=== PATIENT | female | born 1990 | race Two or more races ===

== ENCOUNTER 2018-02-05 08:04 | Emergency (ER) | payer SELFPAY ==
[2018-02-05 08:14] VITALS: BP 130/86
--- NOTE | 2018-02-05 09:13 | ER Document Report ---
HPI - HPI Patient complains to provider of: Cough and cold symptoms Onset: Yesterday Onset/Duration: Gradual Pain Level: 2 Context: 27-year-old non-smoker complaining of cough, congestion, myalgias since yesterday. No fever. No chest pain or shortness of breath. Associated Symptoms: None Exacerbated by: Denies Relieved by: Denies Similar symptoms previously: Yes Recently seen / treated by doctor: No - ROS ROS below otherwise negative: Yes Systems Reviewed and Negative: Yes All other systems reviewed and negative Past Medical History - General Information source: Patient - Social History Smoking Status: Never Smoker Frequency of alcohol use: Rare Drug Abuse: None Lives with: Family Family History: Reviewed & Not Pertinent - Medical History Medical History: Negative Surgical Hx: Negative Vertical Provider Document - CONSTITUTIONAL Agree With Documented VS: Yes - INFECTION CONTROL TRAVEL OUTSIDE OF THE [place] IN LAST 30 DAYS: No - HEENT HEENT: Pharyngeal Erythema - Minimal. negative: Conjuctival Injection, Tympanic Membrane Red, Tympanic Membrane Bulging - NECK Neck: Supple. negative: Lymphadenopathy-Left, Lymphadenopathy-Right - RESPIRATORY Respiratory: Breath Sounds Normal, No Respiratory Distress - CARDIOVASCULAR Cardiovascular: Regular Rate, Regular Rhythm - GI/ABDOMEN Gastrointestinal: Abdomen Soft, Abdomen Non-Tender, No Organomegaly - MUSCULOSKELETAL/EXTREMETIES Musculoskeletal/Extremeties: MAEW - NEURO Level of Consciousness: Awake - DERM Integumentary: No Rash Course - Vital Signs Vital signs: Temp Pulse Resp BP Pulse Ox 98.5 F 88 18 130/86 H 97 02/05/18 08:13 02/05/18 08:13 02/05/18 08:13 02/05/18 08:13 02/05/18 08:13 Discharge - Discharge Clinical Impression: Upper respiratory infection Qualifiers: URI type: unspecified viral URI Qualified Code(s): J06.9 - Acute upper respiratory infection, unspecified Condition: Good Disposition: HOME, SELF-CARE Instructions: Acetaminophen, Ibuprofen (General) ([facility]), Upper Respiratory Illness ([facility]) Additional Instructions: Drink plenty of fluids Rest Tylenol Motrin Return to the emergency room for any chest pain or shortness of breath trouble breathing or high fever Forms: Return to Work
== END 2018-02-05 09:34 | disposition home or self-care (01) ==
LOC: ER 08:04
DX: J06.9 Acute upper respiratory infection, unspecified (principal); M79.1 Myalgia
CPT/HCPCS: 99283

== ENCOUNTER 2018-03-08 11:07 | Emergency (ER) | payer SELFPAY ==
--- NOTE | 2018-03-08 11:26 | ER Document Report ---
ED GI/ - General Chief Complaint: Abdominal Pain Stated Complaint: LOW ABDOMINAL PAIN Time Seen by Provider: 03/08/18 11:18 Mode of Arrival: Ambulatory Information source: Patient Notes: Chief complaint: Pelvic cramping History of complain:( obtained from----patient) 27 years old female her last menstrual cycle was February 02, 2018. Tested home test 3 was positive. Developed pelvic pain and cramps therefore concerned and came to the ED. Denies any vaginal discharge or bleeding. Denies any dysuria frequency urgency. Denies any fever chills or other constitutional symptoms. She has 4 pregnancies, one miscarriage, 2 living children. Onset: Gradual Duration: 2 days Severity: Mild Quality: Crampy Context: Exacerbating factor and relieving factors: Noncontributory REVIEW OF SYSTEMS: CONSTITUTIONAL : Denies fever, chills, or sweats. Denies recent illness. EENT: Denies eye, ear, throat, or mouth pain or symptoms. Denies nasal or sinus congestion or discharge. Denies throat, tongue, or mouth swelling or difficulty swallowing. CARDIOVASCULAR: Denies chest pain. Denies palpitations or racing or irregular heart beat. Denies ankle edema. RESPIRATORY: Denies cough, cold, or chest congestion. Denies shortness of breath, difficulty breathing, or wheezing. GASTROINTESTINAL: Denies distention. Denies nausea, vomiting, or diarrhea. Denies blood in vomitus, stools, or per rectum. Denies black, tarry stools. Denies constipation. GENITOURINARY: Denies difficulty urinating, painful urination, burning, frequency, blood in urine, or discharge. FEMALE GENITOURINARY: Denies vaginal bleeding, heavy or abnormal periods, irregular periods. Denies vaginal discharge or odor. MUSCULOSKELETAL: Denies back or neck pain or stiffness. Denies joint pain or swelling. SKIN: Denies rash, lesions or sores. HEMATOLOGIC : Denies easy bruising or bleeding. LYMPHATIC: Denies swollen, enlarged glands. NEUROLOGICAL: Denies confusion or altered mental status. Denies passing out or loss of consciousness. Denies dizziness or lightheadedness. Denies headache. Denies weakness or paralysis or loss of use of either side. Denies problems with gait or speech. Denies sensory loss, numbness, or tingling. Denies seizures. PSYCHIATRIC: Denies anxiety or stress. Denies depression, suicidal ideation, or homicidal ideation. ALL OTHER SYSTEMS REVIEWED AND NEGATIVE. PHYSICAL EXAMINATION: GENERAL: Well-appearing, well-nourished and in no acute distress. HEAD: Atraumatic, normocephalic. EYES: Pupils equal round and reactive to light, extraocular movements intact, conjunctiva are normal. ENT: Nares patent, oropharynx clear without exudates. Moist mucous membranes. NECK: Normal range of motion, supple without lymphadenopathy LUNGS: Breath sounds clear to auscultation bilaterally and equal. No wheezes rales or rhonchi. HEART: Regular rate and rhythm without murmurs ABDOMEN: Soft, nontender, nondistended abdomen. No guarding, no rebound. No masses appreciated. Examination of genitals-deferred Musculoskeletal: Normal range of motion, no pitting or edema. No cyanosis. NEUROLOGICAL: Cranial nerves grossly intact. Normal speech, normal gait. Normal sensory, motor exams PSYCH: Normal mood, normal affect. SKIN: Warm, Dry, normal turgor, no rashes or lesions noted. Dictation was performed using [employer] voice recognition software TRAVEL OUTSIDE OF THE [place] IN LAST 30 DAYS: No - HPI Notes: 03/08/18 11:25 Dictated - Related Data Allergies/Adverse Reactions: No Known Allergies Allergy (Verified 03/08/18 11:08) Past Medical History - Social History Smoking Status: Former Smoker Chew tobacco use (# tins/day): No Frequency of alcohol use: None Drug Abuse: None Family History: Reviewed & Not Pertinent Patient has suicidal ideation: No Patient has homicidal ideation: No Renal/ Medical History: Denies: Hx Peritoneal Dialysis Past Surgical History: Reports: Hx Section - x2 Review of Systems - Review of Systems Notes: Dictated Physical Exam - Vital signs Vitals: Temp Pulse Resp BP Pulse Ox 98.2 F 69 14 125/89 H 98 03/08/18 11:11 03/08/18 11:11 03/08/18 11:11 03/08/18 11:11 03/08/18 11:11 - Notes Notes: Dictated Course - Vital Signs Vital signs: Temp Pulse Resp BP Pulse Ox 98.2 F 69 14 125/89 H 98 03/08/18 11:11 03/08/18 11:11 03/08/18 11:11 03/08/18 11:11 03/08/18 11:11 - Laboratory Laboratory results interpreted by me: 03/08/18 11:27 Serum HCG, Qual POSITIVE H - Diagnostic Test Radiology reviewed: Reports reviewed - Ultrasound reported by radiologist as no intra-or extra uterine Discharge - Discharge Clinical Impression: Spontaneous Condition: Fair Disposition: HOME, SELF-CARE Instructions: Threatened Abortions ( Patients) Additional Instructions: Please follow-up with your driver service technician as soon as possible
--- NOTE | 2018-03-08 13:40 | RADIOLOGY REPORT (SQ) ---
EXAM DESCRIPTION: U/S OB TRANSVAG W/DOPPLER COMPLETED DATE/TIME: 03/08/2018 1:20 pm REASON FOR STUDY: /pelvic pain COMPARISON: None. TECHNIQUE: Transvaginal static and realtime grayscale images acquired of the pelvis. Additional olaf cted spectral and color Doppler images recorded. All images stored on PACs. BHCG: Pending. LIMITATIONS: None. FINDINGS: UTERUS: No visualized intrauterine . RIGHT ADNEXA: Normal ovary with normal vascular flow. No adnexal free fluid. No adnexal masses. LEFT ADNEXA: Ovary not identified. No adnexal free fluid. No adnexal masses. FREE FLUID: None. OTHER: No other significant finding. IMPRESSION: NO VISUALIZED INTRA- OR EXTRAUTERINE . LEFT OVARY NOT VISUALIZED. bHCG LEVEL NOT AVAILABLE FOR CORRELATION WITH US FINDINGS. ECTOPIC CANNOT BE EXCLUDED. FOLLOW-UP ULTRASOUND AND SERIAL BHCG LEVELS STRONGLY RECOMMENDED TO ACCURATELY ASSESS STATU S. TECHNICAL DOCUMENTATION: JOB ID: [id number] [employer]- All Rights Reserved Reading location - IP/workstation name: [facility]
[2018-03-08 14:11] VITALS: BP 127/79
== END 2018-03-08 14:11 | disposition home or self-care (01) ==
LOC: ER 11:07
DX: O03.9 Complete or unspecified spontaneous abortion without complication (principal); R10.2 Pelvic and perineal pain; Z87.891 Personal history of nicotine dependence
CPT/HCPCS: 36415; 76817; 84702; 84703; 93976; 99284

== ENCOUNTER 2018-04-02 13:39 | Emergency (ER) | payer MEDICAID ==
--- NOTE | 2018-04-02 14:17 | ER Document Report ---
ED Neck/Back Problem - General Chief Complaint: Back Pain Stated Complaint: LOWER BACK PAIN Time Seen by Provider: 04/02/18 14:04 Mode of Arrival: Ambulatory Information source: Patient Notes: 27-year-old female presents to ED for complaint of severe lower back pain worse on the right. She is 7 weeks . She states she had a positive ultrasound on Thursday that showed a live fetus intrauterine. 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 TRAVEL OUTSIDE OF THE [place] IN LAST 30 DAYS: No - HPI Patient complains to provider of: Lower back Onset: This afternoon Where: Work Onset: Sudden Timing: Still present Quality of pain: Achy, Sharp Severity: Moderate Pain Level: 4 Context: Lifting Recent injury: Yes Associated symptoms: Radiation to leg, Lower back pain. denies: Constipation, Fever, Incontinence, Motor loss, Numbness/tingling, Radiation to arm, Radiation to chest, Sensory loss, Sweaty, Unable to urinate, Upper back pain Exacerbated by: Movement of trunk Relieved by: Nothing Similar symptoms previously: No Recently seen / treated by doctor: Yes - Related Data Allergies/Adverse Reactions: No Known Allergies Allergy (Verified 03/08/18 11:08) Past Medical History - General Information source: Patient - Social History Smoking Status: Former Smoker Cigarette use (# per day): No Chew tobacco use (# tins/day): No Smoking Education Provided: No Frequency of alcohol use: None Drug Abuse: None 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 Lives with: Family Family History: Reviewed & Not Pertinent Patient has suicidal ideation: No Patient has homicidal ideation: No - Past Medical History Cardiac Medical History: Reports: None Pulmonary Medical History: Reports: None EENT Medical History: Reports: None Neurological Medical History: Reports: None Endocrine Medical History: Reports: None Renal/ Medical History: Reports: None Malignancy Medical History: Reports: None GI Medical History: Reports: None Musculoskeletal Medical History: Reports None Skin Medical History: Reports None Psychiatric Medical History: Reports: None Traumatic Medical History: Reports: None Infectious Medical History: Reports: None Past Surgical History: Reports: Hx Section - x2 - Immunizations Immunizations up to date: Yes Hx Diphtheria, Pertussis, Tetanus Vaccination: Yes Review of Systems - Review of Systems Constitutional: No symptoms reported EENT: No symptoms reported Cardiovascular: No symptoms reported Respiratory: No symptoms reported Gastrointestinal: No symptoms reported Genitourinary: No symptoms reported Female Genitourinary: No symptoms reported Musculoskeletal: No symptoms reported Skin: No symptoms reported Hematologic/Lymphatic: No symptoms reported Neurological/Psychological: No symptoms reported -: Yes All other systems reviewed and negative Physical Exam - Vital signs Vitals: Temp Pulse Resp BP Pulse Ox 98.1 F 87 18 124/77 98 04/02/18 13:47 04/02/18 13:47 04/02/18 13:47 04/02/18 13:47 04/02/18 13:47 Interpretation: Normal - General General appearance: Appears well, Alert - HEENT Head: Normocephalic, Atraumatic Eyes: Normal Pupils: PERRL - Respiratory Respiratory status: No respiratory distress Chest status: Nontender Breath sounds: Normal Chest palpation: Normal - Cardiovascular Rhythm: Regular Heart sounds: Normal auscultation Murmur: No - Abdominal Inspection: Normal Distension: No distension Bowel sounds: Normal Tenderness: Nontender Organomegaly: No organomegaly - Back Back: Normal, Tender - Bilateral low back pain worse on the right. No: Deformity/step-off, CVA tenderness, Vertebra tenderness, Scars, Scoliosis, Wounds - Extremities General upper extremity: Normal inspection, Nontender, Normal color, Normal ROM , Normal temperature General lower extremity: Normal inspection, Nontender, Normal color, Normal ROM , Normal temperature, Normal weight bearing. No: Jose Francisco's sign - Neurological Neuro grossly intact: Yes Cognition: Normal Orientation: AAOx4 Davis Coma Scale Eye Opening: Spontaneous Chris Coma Scale Verbal: Oriented Chris Coma Scale Motor: Obeys Commands Davis Coma Scale Total: 15 Speech: Normal Motor strength normal: LUE, RUE, LLE, RLE Sensory: Normal - Psychological Associated symptoms: Normal affect, Normal mood - Skin Skin Temperature: Warm Skin Moisture: Dry Skin Color: Normal Course - Re-evaluation Re-evalutation: 04/02/18 15:05 Urine results discussed with patient. Written report of the urine results given to patient. Consulted Dr. Mccain [facility] MUSSEL before applying a Lidoderm patch to her back. Patient was also treated with Tylenol. Patient was given instructions on ice warm packs lidocaine and stretching exercises for the low back. Patient to follow-up with [facility]ER MUSSEL. - Vital Signs Vital signs: Temp Pulse Resp BP Pulse Ox 97.6 F 68 16 115/67 100 04/02/18 15:22 04/02/18 15:22 04/02/18 15:22 04/02/18 15:22 04/02/18 15:22 - Laboratory Laboratory results interpreted by me: 04/02/18 14:12 Urine Ascorbic Acid 40 H Discharge - Discharge Clinical Impression: Low back pain Qualifiers: Chronicity: acute Back pain laterality: bilateral Sciatica presence: without sciatica Qualified Code(s): M54.5 - Low back pain Condition: Stable Disposition: HOME, SELF-CARE Additional Instructions: LOW BACK PAIN: Three out of every four people will have an episode of disabling back pain during their lifetime. Most commonly the pain is due to straining of the muscles and ligaments in the low back. Usual treatment includes: (1) Rest on a firm surface. Avoid lying on your stomach. (2) Ice pack the painful area. After a few days, gentle heat may be used intermittently to relax the area, or ice packs can be continued. (3) Medication may be needed -- muscle relaxers and antiinflammatory medicines are commonly used. (4) As the back improves, exercises are prescribed to strengthen the back and abdominal muscles. Your doctor will advise you on the proper care for your back at each stage in your recovery. You may be better in a few days -- or healing may take several weeks. If new symptoms of a "herniated disc" (radiation of pain, numbness, or tingling down the back of the leg or weakness in the leg) occur, you should be re-examined. Further testing may be necessary. ICE PACKS: Apply ice packs frequently against the painful area. Many different schedules are recommended, such as "20 minutes on, 20 minutes off" or "one hour ice, two hours rest." If you need to work, you may need to go longer between ice treatments. You should plan to have the area ice packed AT LEAST one fourth of the time. The ice should be applied over the wrap, tape, or splint, or over a layer of cloth -- not directly against the skin. Some ice bags have a built-in cloth and can be put directly on the skin. WARM PACKS: After approximately two days, apply gentle heat (such as a heating pad or hot water bottle) for about 20 to 30 minutes about every two hours -- at least four times daily. Warmth and elevation will help you make a more rapid recovery , and will ease the pain considerably. Do not use HOT heat, and never apply heat for longer than 30 minutes. The continuous heat can invisibly damage skin and muscles -- even when no burn is seen on the surface. Damaged muscles can make you MORE sore. Stretching Exercises for the Back The physician has recommended that you begin stretching exercises for your back. These are often used even while the back is painful. However, you should notify the physician if the activities seem to increase your pain. PELVIC TILT: Lie flat on your back with knees bent. Tighten your stomach and buttock muscles so it flattens your lower back against the floor. Hold 10 seconds. Repeat 10 times, twice daily. KNEE RAISE: Lying on the back with knees bent, raise one knee to your chest, then the other. Hold both knees against the chest 10 seconds, then lower one knee at a time. Repeat 10 times, twice daily. PARTIAL TRUNK RAISE: Lie face down, arms at your sides. Keeping your waist on the floor, use your arms raise your chest up. Support yourself on your elbows for 30 seconds. Repeat twice daily, increasing the time to two minutes as you recover. Remove the lidocaine patch and 12 hours. Since she states she do not have insurance that will pay for Lidoderm patches you can use [id number] Aspercreme for the lidocaine. Do not put warm packs on top of the Aspercreme but you can put cold packs. Use warm packs as long as you are not using the Aspercreme or Lidoderm patch. Follow-up with your primary doctor. FOLLOW-UP CARE: If you have been referred to a physician for follow-up care, call the physician s office for an appointment as you were instructed or within the next two days. If you experience worsening or a significant change in your symptoms, notify the physician immediately or return to the Emergency Department at any time for re-evaluation. Forms: Return to Work Referrals: [facility] [Provider Group] - Follow up as needed
[2018-04-02] MEDS ORDERED: ACETAMINOPHEN 325 MG TABLET PO ONE (14:18)
[2018-04-02] MEDS ORDERED: LIDOCAINE 5% (700 MG) TRANSDERMAL ADH..PATCH TP ONE (14:22)
[2018-04-02 14:59] LABS: APPEARANCE,URINE CLEAR; BILIRUBIN,URINE NEGATIVE (NEGATIVE); COLOR,URINE YELLOW; GLUCOSE, URINE NEGATIVE (NEGATIVE); KETONES,URINE NEGATIVE (NEGATIVE); LEUKOCYTE ESTERASE,URINE NEGATIVE (NEGATIVE); NITRITE,URINE NEGATIVE (NEGATIVE); PROTEIN,URINE NEGATIVE (NEGATIVE); URINE SPECIFIC GRAVITY 1.023; UROBILINOGEN,URINE NEGATIVE mg/dL (<2.0)
[2018-04-02 15:23] VITALS: BP 115/67
== END 2018-04-02 15:24 | disposition home or self-care (01) ==
LOC: ER 13:39
DX: O99.89 Other specified diseases and conditions complicating pregnancy, childbirth and the puerperium (principal); M54.5 Low back pain; Z3A.01 Less than 8 weeks gestation of pregnancy; Z87.891 Personal history of nicotine dependence
CPT/HCPCS: 99283; 81001; J3490 ×2

== ENCOUNTER 2018-07-19 14:25 | Outpatient (CLI) | payer MEDICAID ==
[2018-07-19 15:11] LABS: APPEARANCE,URINE CLEAR; BILIRUBIN,URINE NEGATIVE (NEGATIVE); COLOR,URINE YELLOW; GLUCOSE, URINE NEGATIVE (NEGATIVE); KETONES,URINE NEGATIVE (NEGATIVE); LEUKOCYTE ESTERASE,URINE NEGATIVE (NEGATIVE); NITRITE,URINE NEGATIVE (NEGATIVE); PROTEIN,URINE NEGATIVE (NEGATIVE); URINE SPECIFIC GRAVITY 1.015; UROBILINOGEN,URINE NEGATIVE mg/dL (<2.0)
[2018-07-19 15:44] LABS: URINE AMPHETAMINES SCREEN NEGATIVE; URINE BARBITURATES SCREEN NEGATIVE; URINE BENZODIAZEPINES SCREEN NEGATIVE; URINE METHADONE SCREEN NEGATIVE; URINE PHENCYCLIDINE SCREEN NEGATIVE
[2018-07-19 15:51] LABS: URINE COCAINE SCREEN NEGATIVE; URINE MARIJUANA (THC) SCREEN NEGATIVE
== END 2018-07-19 15:40 | disposition home or self-care (01) ==
LOC: LC 14:25
PROVIDERS: ATTEND Obstetrics & Gynecology Gynecology
DX: O26.892 Other specified pregnancy related conditions, second trimester (principal); Z3A.22 22 weeks gestation of pregnancy
CPT/HCPCS: 81001; 80307; Q0114

== ENCOUNTER 2018-09-07 18:12 | Outpatient (CLI) | payer MEDICAID ==
[2018-09-07 19:21] LABS: APPEARANCE,URINE SLIGHTLY-CLOUDY; BILIRUBIN,URINE NEGATIVE (NEGATIVE); COLOR,URINE YELLOW; GLUCOSE, URINE NEGATIVE (NEGATIVE); KETONES,URINE 20 mg/dL (NEGATIVE); LEUKOCYTE ESTERASE,URINE NEGATIVE (NEGATIVE); NITRITE,URINE NEGATIVE (NEGATIVE); PROTEIN,URINE NEGATIVE (NEGATIVE); UROBILINOGEN,URINE NEGATIVE mg/dL (<2.0)
[2018-09-07 19:34] LABS: URINE AMPHETAMINES SCREEN NEGATIVE; URINE BARBITURATES SCREEN NEGATIVE; URINE BENZODIAZEPINES SCREEN NEGATIVE; URINE COCAINE SCREEN NEGATIVE; URINE MARIJUANA (THC) SCREEN NEGATIVE; URINE METHADONE SCREEN NEGATIVE; URINE PHENCYCLIDINE SCREEN NEGATIVE
--- NOTE | 2018-09-07 21:30 | RADIOLOGY REPORT (SQ) ---
US PELVIS HISTORY: Evaluate cervical length. COMPARISON: 04/16/2018 TECHNIQUE: Grayscale, color Doppler, and spectral Doppler ultrasound images of the pelvis were obtained. FINDINGS: There is an intrauterine gestation in vertex presentation. The heart rate is 145 bpm. The placenta is anterior. The cervix measures 4 cm in length and is closed. The BISHOP measures 15.6 cm. IMPRESSION: Cervical length measures 4 cm.
== END 2018-09-07 21:06 | disposition home or self-care (01) ==
LOC: LC 18:12
PROVIDERS: ATTEND Obstetrics & Gynecology
PROC: 4A1HXCZ Monitoring of Products of Conception, Cardiac Rate, External Approach (ICD-10-PCS; principal; 2018-09-07)
DX: O99.283 Endocrine, nutritional and metabolic diseases complicating pregnancy, third trimester (principal); E86.0 Dehydration; M54.9 Dorsalgia, unspecified; Z3A.29 29 weeks gestation of pregnancy
CPT/HCPCS: 76815; 80307; 81001

== ENCOUNTER 2018-10-21 09:27 | Outpatient (CLI) | payer MEDICAID ==
[2018-10-21 10:18] LABS: APPEARANCE,URINE CLEAR; BILIRUBIN,URINE NEGATIVE (NEGATIVE); COLOR,URINE YELLOW; GLUCOSE, URINE 50 mg/dL (NEGATIVE); KETONES,URINE TRACE mg/dL (NEGATIVE); LEUKOCYTE ESTERASE,URINE NEGATIVE (NEGATIVE); NITRITE,URINE NEGATIVE (NEGATIVE); PROTEIN,URINE NEGATIVE (NEGATIVE); URINE SPECIFIC GRAVITY 1.016
--- NOTE | 2018-10-21 10:46 | Non Stress Test Report ---
Non Stress Test Datetime Report Generated by CPN: 10/21/2018 10:46 DEMOGRAPHIC EGA NST: 36.1 INDICATION Indication for Study: Ordered by Provider Indication for Study (NST) Other: labor check VITAL SIGNS Temperature - NST: 98.3 RESP - NST: 18 NBPSYS NST: 125 NBPDIA NST: 67 MONITORING Monitor Explained: Monitor Explained; Test Explained; Patient Verbalized Understanding Time on Monitor: 10/21/2018 09:56 Time off Monitor: 10/21/2018 10:25 NST Duration: 29 NST INTERVENTIONS NST Interventions: None; Oxytocin Challenge Test Physician Notified NST: Dr Younger BABY A: [id number] BABY A Movement : Present Contraction Frequency : none FHR Baseline : 135 Accelerations : 15X15 Decelerations : None Variability : Moderate 6-25bpm NST Review: Meets Criteria for Reactive NST NST Review and Verified By : Susana Kuo RNC NST Results: Reactive NST REPORT Report Trigger: Send Report
[2018-10-21 10:59] LABS: URINE AMPHETAMINES SCREEN NEGATIVE; URINE BARBITURATES SCREEN NEGATIVE; URINE BENZODIAZEPINES SCREEN NEGATIVE; URINE COCAINE SCREEN NEGATIVE; URINE MARIJUANA (THC) SCREEN NEGATIVE; URINE METHADONE SCREEN NEGATIVE; URINE PHENCYCLIDINE SCREEN NEGATIVE
== END 2018-10-21 10:41 | disposition home or self-care (01) ==
LOC: LC 09:27
PROVIDERS: ATTEND Obstetrics & Gynecology
PROC: 4A1HXCZ Monitoring of Products of Conception, Cardiac Rate, External Approach (ICD-10-PCS; principal; 2018-10-21)
DX: Z34.93 Encounter for supervision of normal pregnancy, unspecified, third trimester (principal)
CPT/HCPCS: 59025; 80307; 81001

== ENCOUNTER 2018-11-10 04:31 | Inpatient (IN) | payer MEDICAID ==
[2018-11-09 10:59] LABS: ABSOLUTE LYMPHOCYTES (AUTO) 1.7 10^3/uL (0.5-4.7); ABSOLUTE MONOCYTES (AUTO) 0.5 10^3/uL (0.1-1.4); BASOPHILS % (AUTO) 0.2 % (0-2); EOSINOPHILS % (AUTO) 0.4 % (0-6); HEMATOCRIT 32.2 % (36.0-47.0); HEMOGLOBIN 11.1 g/dL (12.0-15.5); LYMPHOCYTES % (AUTO) 23.6 % (13-45); MEAN CORPUSCULAR HEMOGLOBIN 27.9 pg (27.0-33.4); MEAN CORPUSCULAR HGB CONC 34.5 g/dL (32.0-36.0); MEAN CORPUSCULAR VOLUME 81 fl (80-97); MONOCYTES % (AUTO) 6.7 % (3-13); PLATELET COUNT 100 10^3/uL (150-450); RED BLOOD COUNT 3.98 10^6/uL (3.72-5.28); RED CELL DISTRIBUTION WIDTH 14.2 % (11.5-14.0); SEGMENTED NEUTROPHILS % (AUTO) 69.1 % (42-78); TOTAL CELLS COUNTED % (AUTO) 100 %; WHITE BLOOD COUNT 7.2 10^3/uL (4.0-10.5)
[2018-11-09 11:01] LABS: APPEARANCE,URINE CLEAR; BILIRUBIN,URINE NEGATIVE (NEGATIVE); COLOR,URINE YELLOW; GLUCOSE, URINE NEGATIVE (NEGATIVE); KETONES,URINE NEGATIVE (NEGATIVE); LEUKOCYTE ESTERASE,URINE TRACE (NEGATIVE); NITRITE,URINE NEGATIVE (NEGATIVE); PROTEIN,URINE NEGATIVE (NEGATIVE); URINE SPECIFIC GRAVITY 1.012
[2018-11-09 11:31] LABS: URINE AMPHETAMINES SCREEN NEGATIVE; URINE BARBITURATES SCREEN NEGATIVE; URINE BENZODIAZEPINES SCREEN NEGATIVE; URINE COCAINE SCREEN NEGATIVE; URINE MARIJUANA (THC) SCREEN NEGATIVE; URINE METHADONE SCREEN NEGATIVE; URINE PHENCYCLIDINE SCREEN NEGATIVE
[2018-11-10] MEDS ORDERED: RINGERS SOLUTION,LACTATED 1,000 ML IV PRN ×2 (04:53→10:31)
[2018-11-10] MEDS ORDERED: CEFAZOLIN 2 GM/D5W RTU 2 GM/50 ML RTUPB IV PRN (04:58)
[2018-11-10] MEDS ORDERED: RINGERS SOLUTION,LACTATED 2,000 ML IV ONE (05:00)
[2018-11-10] MEDS ORDERED: FENTANYL CITRATE INJ/PF 100 MCG/2 ML AMPUL ONE (07:43)
[2018-11-10] MEDS ORDERED: EPHEDRINE SULFATE INJ 50 MG/1 ML AMPULE ONE (07:43)
[2018-11-10] MEDS ORDERED: BUPIVACAINE HCL/DEX-WATER/PF 15 MG/2 ML AMPULE ONE (07:43)
[2018-11-10] MEDS ORDERED: MIDAZOLAM 2 MG/2 ML INJ ONE (07:43)
[2018-11-10] MEDS ORDERED: OXYTOCIN/NORMAL SALINE 20 UNIT/1,000 ML RTUINJ ONE (07:44)
[2018-11-10 09:04] LABS: HEMATOCRIT 31.4 % (36.0-47.0); HEMOGLOBIN 10.6 g/dL (12.0-15.5); MEAN CORPUSCULAR HEMOGLOBIN 27.4 pg (27.0-33.4); MEAN CORPUSCULAR HGB CONC 33.9 g/dL (32.0-36.0); MEAN CORPUSCULAR VOLUME 81 fl (80-97); PLATELET COUNT 104 10^3/uL (150-450); RED BLOOD COUNT 3.88 10^6/uL (3.72-5.28); RED CELL DISTRIBUTION WIDTH 14.1 % (11.5-14.0); WHITE BLOOD COUNT 7.9 10^3/uL (4.0-10.5)
[2018-11-10] MEDS ORDERED: MEPERIDINE HCL/PF INJ 25 MG/1 ML DISP.SYRIN IV PRN (09:45)
[2018-11-10] MEDS ORDERED: PROMETHAZINE HCL INJ 25 MG/1 ML VIAL IV PRN ×3 (09:45→10:31)
[2018-11-10] MEDS ORDERED: FENTANYL CITRATE INJ/PF 100 MCG/2 ML AMPUL IV PRN ×3 (09:45)
[2018-11-10] MEDS ORDERED: OXYCODONE-ACETAMINOPHEN 5-325 MG TABLET PO PRN ×3 (09:45→10:31)
[2018-11-10] MEDS ORDERED: DIPHENHYDRAMINE HCL 50 MG/ML VIAL IV PRN (09:45)
[2018-11-10] MEDS ORDERED: HYDROMORPHONE HCL INJ/PF 2 MG/ML AMPULE IV PRN (10:31)
[2018-11-10] MEDS ORDERED: ACETAMINOPHEN 325 MG TABLET PO PRN (10:31)
[2018-11-10] MEDS ORDERED: ACETAMINOPHEN 1,000 MG/100 ML RTUPB IV PRN (10:31)
[2018-11-10] MEDS ORDERED: SIMETHICONE 80 MG TAB.CHEW PO PRN (10:31)
[2018-11-10] MEDS ORDERED: OXYTOCIN/NORMAL SALINE 20 UNIT/1,000 ML RTUINJ IV PRN (10:31)
[2018-11-10] MEDS ORDERED: DIPH/PERTUSS(ACELL)/TETANUS VAC/PF 0.5 ML SYR (>=10YO) IM PRN (10:31)
[2018-11-10] MEDS ORDERED: MEASLES,MUMPS&RUBELLA VACC/PF 0.5 ML VIAL SUBCUT PRN (10:31)
--- NOTE | 2018-11-10 10:33 | PDOC DELIVERY SUMMARY ---
Delivery Summary - Maternal Hx : IV Hx # Term Pregnancies: 1 Hx # Pregnancies: 1 Hx Total # of Abortions (Sponateous & Elective): 1 PRASAD: 11/17/18 Gestational Age: 39 Ruptured Membranes: AROM Time of Rupture: 09:47 Fluids: Clear - Delivery Presentation: Vertex Heart Rate Monitoring: Done Pre-Operatively Support Person Present: No Location: LD : Scheduled Placenta: Within Normal Limits Delivery of Placenta Date: 11/10/18 Delivery of Placenta Time: 09:51 - Medications Type of Anesthesia:: Spinal - Assess and Care Baby 1 Male Delivery of Infant Date: 11/10/18 Delivery of Infant Time: 09:49 at 1 minute: 9 at 5 minutes: 9 Preprinted Number On Band: [id number] Infant Skin to Skin: No To Nursery At: 09:58 Mode of Transport: Bassinet Delivery Weight: 3,995 Infant Delivery Length: 21 in - Delivery Personnel Rubbish Collection Supervisor: LIDIA YOUNG RN: LETICIA MIXON RN: JUWAN UNDERWOOD MD: OLGA VELA
--- NOTE | 2018-11-10 10:35 | Operative Report ---
Operative Report DATE OF SURGERY: 11/10/18 PREOPERATIVE DIAGNOSIS: The patient desires a repeat and a tubal liga tion with Filshie clips POSTOPERATIVE DIAGNOSIS: Same OPERATION: Repeat via low transverse uterine incision and bilateral tubal ligation with Filshie clip SURGEON: OLGA VELA ANESTHESIA: Spinal TISSUE REMOVED OR ALTERED: Placenta COMPLICATIONS: None ESTIMATED BLOOD LOSS: 250 cc INTRAOPERATIVE FINDINGS: Viable normal uterus tubes and ovaries PROCEDURE: Patient was taken to the OR and placed in supine position after her spinal anesthesia. She is prepared and draped in sterile fashion. Meza was placed for drainage of the bladder. Low transverse incision was made and carried down the level of the fascia. The fascial incision was made with knife and extended bilaterally with curved Berg scissors. The fascia was off the rectus muscles using sharp and blunt dissection. The rectus muscles are in the midline. The peritoneum was entered without incident. Bladder blade was placed in uterine segment was identified. A low transverse incision was made creating a bladder flap. Bladder blade was placed low transverse uterine incision was made with the knife and extended with fingertips. The baby was delivered with some fundal pressure and the assistance of a Kiwi vacuum with one pull with the pressure in the green range. There was 1 pop off. After the pop off the baby was then delivered with just some fundal pressure. Mouth and nose were suctioned free. The cord is doubly clamped and cut. Baby is passed off to the salesperson children's shoes in attendance. The placenta was manually extracted with trailing membranes. The uterus was externalized wrapped in a moist lap sponge. Uterine contents wiped free. Uterus was closed with a running locking layer of 0 chromic suture using the second layer to imbricate the first completing a double layer closure of the uterus. The serosa was closed with a running 2-0 chromic stitch. The pelvis was irrigated and suctioned free of fluid the uterus was replaced in the abdomen. The abdominal wall peritoneum was closed with running 2-0 chromic stitch. Fascia was closed with a running 0 Vicryl in 2 segments. Yamilka's layer was brought together with 0 plain gut stitch and the skin was closed with running subcuticular 4-0 undyed Vicryl stitch. The wound was dressed mother and baby did well.
[2018-11-10] MEDS ORDERED: ACETAMINOPHEN 1,000 MG/100 ML RTUPB IV ONE (11:26)
[2018-11-10] MEDS ORDERED: OXYCODONE-ACETAMINOPHEN 5-325 MG TABLET ONE (12:12)
[2018-11-10] MEDS: IBUPROFEN 800 MG TABLET PO SCH ×3 (13:38→23:29)
[2018-11-10] MEDS ORDERED: ONDANSETRON HCL INJ/PF 4 MG/2 ML SDV ONE (15:12)
[2018-11-10] MEDS: OXYCODONE-ACETAMINOPHEN 5-325 MG TABLET PO PRN (17:45)
[2018-11-10] MEDS: DOCUSATE SODIUM 100 MG CAPSULE PO SCH (17:46)
[2018-11-11] MEDS: OXYCODONE-ACETAMINOPHEN 5-325 MG TABLET PO PRN ×2 (01:18→12:44)
[2018-11-11] MEDS: IBUPROFEN 800 MG TABLET PO SCH ×4 (06:01→23:56)
[2018-11-11 06:14] LABS: HEMATOCRIT 29.4 % (36.0-47.0); MEAN CORPUSCULAR HEMOGLOBIN 27.7 pg (27.0-33.4); MEAN CORPUSCULAR VOLUME 82 fl (80-97); RED BLOOD COUNT 3.61 10^6/uL (3.72-5.28); RED CELL DISTRIBUTION WIDTH 14.5 % (11.5-14.0); WHITE BLOOD COUNT 9.1 10^3/uL (4.0-10.5)
[2018-11-11 06:37] LABS: PLATELET COUNT 99 10^3/uL (150-450)
--- NOTE | 2018-11-11 09:47 | PDOC PROGRESS REPORT ---
Subjective-OB Progress Note for:: 11/11/18 Subjective: pt states she feels fine eating well and passing gas Physical Exam (OB) Vital Signs: Temp Pulse Resp BP Pulse Ox 97.9 F 78 15 109/68 97 11/11/18 08:00 11/11/18 08:00 11/11/18 08:00 11/11/18 08:00 11/11/18 08:00 Intake & Output 11/10/18 11/11/18 11/12/18 06:59 06:59 06:59 Intake Total 1180 Output Total 2550 Balance -1370 Weight 230 kg 104.7 kg - General General Appearance: Appears well, Alert - PIH/Pre-Eclampsia Clonus: Negative Headache: Absent Epigastric Pain: No Visual Changes: No - Dressing Removed: No Incision: Well Approximated Closure Type: Sutures - Lochia Lochia Amount: Small 10-25 ml Lochia Color: Rubra/Red - Abdomen Description: Soft Bowel Sounds: Normoactive Flatus Presence: Present Stool: No Fundal Description: Firm, Midline Fundal Height: u/u - u/2 - Extremities Calf: Nontender Objective-Diagnostic Laboratory: 11/11/18 05:52 11/11/18 05:52 WBC 9.1 RBC 3.61 L Hgb 10.0 L Hct 29.4 L MCV 82 MCH 27.7 MCHC 34.0 RDW 14.5 H Plt Count 99 L Assessment and Plan(PN) - Assessment and Plan (1) Qualifiers: Weeks of gestation: 39 weeks Qualified Code(s): Z3A.39 - 39 weeks gestation of Is this a current diagnosis for this admission?: Yes - Time Spent with Patient Time with patient: Less than 15 minutes - Disposition Anticipated Discharge: Home Within: within 24 hours - routine post /post op care
[2018-11-11] MEDS: PRENATAL VITAMIN W DHA CAPSULE PO SCH (10:08)
[2018-11-11] MEDS: DOCUSATE SODIUM 100 MG CAPSULE PO SCH ×2 (10:09→18:54)
[2018-11-12] MEDS: IBUPROFEN 800 MG TABLET PO SCH ×2 (05:46→11:08)
[2018-11-12] MEDS: OXYCODONE-ACETAMINOPHEN 5-325 MG TABLET PO PRN ×2 (07:40→12:24)
[2018-11-12] MEDS: DOCUSATE SODIUM 100 MG CAPSULE PO SCH (09:06)
[2018-11-12] MEDS: PRENATAL VITAMIN W DHA CAPSULE PO SCH (09:06)
--- NOTE | 2018-11-12 09:38 | PDOC PROGRESS REPORT ---
Subjective-OB Progress Note for:: 11/12/18 Subjective: Doing well, ready to go home, breast and bottle feeding Physical Exam (OB) Vital Signs: Temp Pulse Resp BP Pulse Ox 98.1 F 80 16 133/62 H 95 11/12/18 07:54 11/12/18 07:54 11/12/18 07:54 11/12/18 07:54 11/12/18 07:54 Intake & Output 11/11/18 11/12/18 11/13/18 06:59 06:59 06:59 Intake Total 1180 500 Output Total 2550 Balance -1370 500 Weight 104.7 kg 104.7 kg - PIH/Pre-Eclampsia DTR's: 1 + Clonus: Negative Headache: Absent Epigastric Pain: No Visual Changes: No - Dressing Removed: No Incision: Dressing Closure Type: opsite - Lochia Lochia Amount: Scant < 10 ml Lochia Color: Rubra/Red - Abdomen Description: Soft, Round Hernia Present: No Fundal Description: Firm, Midline Fundal Height: u/u - u/2 Objective-Diagnostic Laboratory: 11/11/18 05:52 Assessment and Plan(PN) - Assessment and Plan (1) History of bilateral tubal ligation Is this a current diagnosis for this admission?: Yes (2) Status post repeat low transverse section Is this a current diagnosis for this admission?: Yes - Time Spent with Patient Time with patient: Less than 15 minutes Medications reviewed and adjusted accordingly: Yes - Disposition Anticipated Discharge: Home Within: within 24 hours
--- NOTE | 2018-11-12 09:44 | PDOC DISCHARGE SUMMARY ---
Final Diagnosis Discharge Date: 11/12/18 - Final Diagnosis (1) History of bilateral tubal ligation Is this a current diagnosis for this admission?: Yes (2) Status post repeat low transverse section Is this a current diagnosis for this admission?: Yes Discharge Data - Discharge Medication Prescriptions: Oxycodone HCl/Acetaminophen [Percocet 5-325 mg Tablet] 1 tab PO Q4HP PRN #30 tablet PRN Reason: Ibuprofen [Motrin 800 mg Tablet] 800 mg PO Q6 #30 tablet Home Medications: Vits96/Iron Fum/Folic [ Tablet] 1 each PO DAILY 07/19/18 Ibuprofen [Motrin 800 mg Tablet] 800 mg PO Q6 #30 tablet 11/12/18 Oxycodone HCl/Acetaminophen [Percocet 5-325 mg Tablet] 1 tab PO Q4HP PRN #30 tablet 11/12/18 Gestational Age: 38 Reason(s) for Admission: Ceasarean Section-Repeat, Tubal Ligation Procedures: NST, Ultrasound Intrapartum Procedure(s): : Low Cervical, Transverse - Diagnosis Test Laboratory: Temp Pulse Resp BP Pulse Ox 98.1 F 80 16 133/62 H 95 11/12/18 07:54 11/12/18 07:54 11/12/18 07:54 11/12/18 07:54 11/12/18 07:54 11/09/18 11/09/18 11/10/18 10:10 10:21 08:00 RBC 3.98 Cancelled Hgb 11.1 L Cancelled Hct 32.2 L Cancelled Urine Opiates Screen NEGATIVE 11/10/18 11/11/18 08:58 05:52 RBC 3.88 3.61 L Hgb 10.6 L 10.0 L Hct 31.4 L 29.4 L Urine Opiates Screen - Discharge information/Instructions Discharge Activity: Activity As Tolerated, No Lifting Over 10 Pounds, No Lifting/Push/Pulling, Pelvic Rest Discharge Diet: As Tolerated, Regular Disposition: HOME, SELF-CARE Follow up with: [facility] in: 1, Weeks
[2018-11-12 10:56] VITALS: BP 119/74
== END 2018-11-12 12:45 | disposition home or self-care (01) | DRG 785 ==
LOC: 2S 04:31
PROVIDERS: ADMIT Obstetrics & Gynecology; ATTEND Obstetrics & Gynecology
PROC: 0UL70CZ Occlusion of Bilateral Fallopian Tubes with Extraluminal Device, Open Approach (ICD-10-PCS; 2018-11-10)
PROC: 4A1HX4Z Monitoring of Products of Conception, Cardiac Electrical Activity, External Approach (ICD-10-PCS; 2018-11-10)
PROC: 10D00Z1 Extraction of Products of Conception, Low, Open Approach (ICD-10-PCS; principal; 2018-11-10 07:45)
DX: O34.211 Maternal care for low transverse scar from previous cesarean delivery (principal); O24.425 Gestational diabetes mellitus in childbirth, controlled by oral hypoglycemic drugs; O99.213 Obesity complicating pregnancy, third trimester; N85.8 Other specified noninflammatory disorders of uterus; Z37.0 Single live birth; Z87.891 Personal history of nicotine dependence; Z3A.39 39 weeks gestation of pregnancy; Z30.2 Encounter for sterilization
CPT/HCPCS: 1961; 36415; 59025; 80307; 81001; 82962; 85025; 85027; 86850; 86900; 86901; 90715; 94799; J0131; J2250; J2405; J2590; J3010; J3490; J7120

== ENCOUNTER 2018-11-25 10:25 | Emergency (ER) | payer MEDICAID ==
[2018-11-25 10:50] VITALS: BP 132/90
[2018-11-25] MEDS ORDERED: LIDOCAINE 2% VISCOUS SOLN 20 ML UDCUP PO ONE (11:33)
[2018-11-25] MEDS ORDERED: PENICILLIN V POTASSIUM 500 MG TABLET PO ONE (11:33)
[2018-11-25] MEDS ORDERED: ACETAMINOPHEN 325 MG TABLET PO ONE (11:33)
--- NOTE | 2018-11-25 11:39 | ER Document Report ---
ED Oral Problem - General Chief Complaint: Toothache Stated Complaint: TOOTH PAIN Time Seen by Provider: 11/25/18 11:33 Primary Care Provider: [facility] [Provider Group] - Follow up as needed JUAN NUR DO [ACTIVE STAFF] - Follow up as needed Mode of Arrival: Ambulatory Information source: Patient Notes: 28-year-old female presented to ED for multiple dental caries and dental pain throughout her whole mouth. She has multiple cavities to the left upper jaw that are causing discomfort. She states she has been told that she needs to have most of her teeth taken out due to gum disease. She states she does need something for the discomfort and infection at this time and that she is getting his insurance to be able to go to a dentist. Is alert oriented respirations regular and unlabored speaking in full sentences walks with a even steady gait. She does not have any signs or symptoms of Abhishek's angina. He will be treated with Tylenol viscous lidocaine and penicillin and discharged home with a prescription for penicillin. TRAVEL OUTSIDE OF THE [place] IN LAST 30 DAYS: No - HPI Patient complains to provider of: Toothache Onset: Other Onset: Gradual - Chronic worse Quality of pain: Sharp Severity: Moderate Pain Level: 4 Associated symptoms: Toothache Worsened by: Nothing Relieved by: Nothing Similar symptoms previously: Yes Recently seen / treated by doctor/dentist: No - Related Data Allergies/Adverse Reactions: No Known Allergies Allergy (Verified 11/25/18 10:28) Past Medical History - General Information source: Patient - Social History Smoking Status: Never Smoker Frequency of alcohol use: None Drug Abuse: None Lives with: Family Family History: Reviewed & Not Pertinent Patient has suicidal ideation: No Patient has homicidal ideation: No - Past Medical History Cardiac Medical History: Reports: Hx Hypertension - GHTN Pulmonary Medical History: Reports: None EENT Medical History: Reports: None Neurological Medical History: Reports: None Endocrine Medical History: Reports: None Renal/ Medical History: Reports: None Malignancy Medical History: Reports: None GI Medical History: Reports: Hx Gastroesophageal Reflux Disease - WITH Musculoskeletal Medical History: Reports None Skin Medical History: Reports None Psychiatric Medical History: Reports: None Traumatic Medical History: Reports: None Infectious Medical History: Reports: None Past Surgical History: Reports: Hx Section - x3 - Immunizations Immunizations up to date: Yes Hx Diphtheria, Pertussis, Tetanus Vaccination: Yes Review of Systems - Review of Systems Constitutional: No symptoms reported EENT: Mouth pain, Dental problem Cardiovascular: No symptoms reported Respiratory: No symptoms reported Gastrointestinal: No symptoms reported Genitourinary: No symptoms reported Female Genitourinary: No symptoms reported Musculoskeletal: No symptoms reported Skin: No symptoms reported Hematologic/Lymphatic: No symptoms reported Neurological/Psychological: No symptoms reported Physical Exam - Vital signs Vitals: Temp Pulse Resp BP Pulse Ox 98.8 F 79 16 132/90 H 98 11/25/18 10:48 11/25/18 10:48 11/25/18 10:48 11/25/18 10:48 11/25/18 10:48 Interpretation: Normal - General General appearance: Appears well, Alert - HEENT Head: Normocephalic, Atraumatic Eyes: Normal Pupils: PERRL Ears: Normal External canal: Normal Tympanic membrane: Normal Sinus: Normal Nasal: Normal Mucous membranes: Other Teeth diagram: 1 - 2 large cavities in this area but she has multiple cavities throughout her mouth did need to be treated. - Respiratory Respiratory status: No respiratory distress Chest status: Nontender Breath sounds: Normal Chest palpation: Normal - Cardiovascular Rhythm: Regular Heart sounds: Normal auscultation Murmur: No - Abdominal Inspection: Normal Distension: No distension Bowel sounds: Normal Tenderness: Nontender Organomegaly: No organomegaly - Back Back: Normal, Nontender - Extremities General upper extremity: Normal inspection, Nontender, Normal color, Normal ROM, Normal temperature General lower extremity: Normal inspection, Nontender, Normal color, Normal ROM, Normal temperature, Normal weight bearing. No: Jose Francisco's sign - Neurological Neuro grossly intact: Yes Cognition: Normal Orientation: AAOx4 [place] Coma Scale Eye Opening: Spontaneous Chris Coma Scale Verbal: Oriented Chris Coma Scale Motor: Obeys Commands [place] Coma Scale Total: 15 Speech: Normal Motor strength normal: LUE, RUE, LLE, RLE Sensory: Normal - Psychological Associated symptoms: Normal affect, Normal mood - Skin Skin Temperature: Warm Skin Moisture: Dry Skin Color: Normal Course - Re-evaluation Re-evalutation: 11/25/18 11:42 Presentation is most consistent with likely an infected tooth. Airway is patent. Vitals within normal limits. Patient is able swallow without any difficulty. There is no significant facial swelling. No evidence of Abhishek angina, apical abscess, or airway obstruction. Patient will be started on antibiotics. I've instructed to follow-up with dentistry as earliest ability for definitive management. At this time will discharge with return precautions and follow-up recommendations. Verbal discharge instructions given a the bedside and opportunity for questions given. Medication warnings reviewed. Patient is in agreement with this plan and has verbalized understanding of return precautions and the need for primary care follow-up in the next 24-72 hours. - Vital Signs Vital signs: Temp Pulse Resp BP Pulse Ox 98.8 F 79 16 132/90 H 98 11/25/18 10:48 11/25/18 10:48 11/25/18 10:48 11/25/18 10:48 11/25/18 10:48 Discharge - Discharge Clinical Impression: Pain due to dental caries Condition: Stable Disposition: HOME, SELF-CARE Additional Instructions: TOOTHACHE: Your pain is due to dental decay. The tooth must be repaired in order for you to feel better. You will, therefore, be referred to a dentist. We do not have dentists on the staff at [facility]. Severe swelling or drainage around a tooth usually means a dental abscess. This also requires evaluation and treatment by the dentist, but antibiotics may be prescribed while awaiting dental treatment. You should be rechecked immediately if you develop major swelling of the face, increasing pain, a lump in the jaw or gums, headache, difficulty swallowing, or fever. PENICILLIN V K: You have been given a prescription for Penicillin VK. Your physician has determined that this is the best antibiotic for your condition. Pen VK can be taken with meals, however more of the antibiotic gets into the bloodstream if it's taken on an empty stomach. Penicillin usually has no side effects. However, allergy to penicillins is common. If you have had an allergic reaction to any drug of the penicillin family, you should never take any other penicillin. Notify your doctor at once if you develop hives, itching, swelling, faintness, or shortness of breath. Acetaminophen Acetaminophen may be taken for pain relief or fever control. It's much safer than aspirin, offering a wider range of "safe" dosages. It is safe during . Some brand names are Tylenol, Panadol, Datril, Anacin 3, Tempra, and Liquiprin. Acetaminophen can be repeated every four hours. The following are maximum recommended dosages: WEIGHT Dose Drops Elixir Chewable(80mg) (LBS.) drprs=droppers tsp=teaspoon 6 40 mg .4 ml (1/2) 6-11 80 mg .8 ml (full) 1/2 tsp 1 tab 12-16 120 mg 1 1/2 drprs 3/4 tsp 1 1/2 tabs 17-23 160 mg 2 drprs 1 tsp 2 tabs 24-30 240 mg 3 drprs 1 1/2 tsp 3 tabs 30-35 320 mg 2 tsp 4 tabs 36-41 360 mg 2 1/4 tsp 4 1/2 tabs 42-47 400 mg 2 1/2 tsp 5 tabs 48-53 480 mg 3 tsp 6 tabs 54-59 520 mg 3 1/4 tsp 6 1/2 tabs 60-64 560 mg 3 1/2 tsp 7 tabs 65-70 600 mg 3 3/4 tsp 7 1/2 tabs 71-76 640 mg 4 tsp 8 tabs 77-82 720 mg 4 1/2 tsp 9 tabs 83-88 800 mg 5 tsp 10 tabs >89 pounds or adults 650 mg to 900 mg Acetaminophen can be repeated every four hours. Maximum daily dose not to exceed 4000 mg. These maximum recommended dosages are slightly higher than the dosages written on the product container, but these dosages are very safe and well below the toxic dosage for acetaminophen. Ibuprofen Ibuprofen is an excellent, safe drug for pain control. In addition, it has potent antiinflammatory effects which are beneficial, especially in the treatment of injuries, arthritis, or tendonitis. It's best to take ibuprofen with food. Persons with ulcer disease or allergy to aspirin should notify their physician of this before taking ibuprofen. Take the medication exactly as prescribed. Don't take additional doses unless instructed to do so by your doctor. If you develop wheezing, shortness of breath, hives, faintness, stomach pain, vomiting, or dark black stools, return for re-evaluation at once. I have given you a syringe of viscous lidocaine. Up to apply a small amount to your finger and rub it on the gums that are hurting. You can do this every 3-4 hours. Do not do it more often and that or it will make your gums hurt more and become raw. FOLLOW-UP CARE: You have been referred for follow-up care to the dentists listed below. Call the dentists office for an appointment as you were instructed or within the next two days. If you experience worsening or a significant change in your symptoms, notify the physician immediately or return to the Emergency Department at any time for re-evaluation. [facility] [address] [place] [address] [facility] [place] [address] [facility] [address] [facility] ([facility]) [facility] [address] [email or web address] [address] [place] [address] Thursday- 8:00am to 5:00 pm Will see patients from other [facility]. Charges based on income and family size and accepts Medicare, Medicaid, and Insurances Will pull molars [facility] [address] Hours of Operation 8:00 am - 4:30 pm weekdays The following dental offices accept Medicaid: [facility] [address] [place] Dr. Eller [address]. [place] Srikanth Rouse Lutsavage, and Mauricio oral surgery Dr. Barajas ([place]) Dr. Hale ([place]) [facility] Drs. Hutchison and Parker ([place]) Dr. Samuel ([place]) [facility] Dr. Harris ([place]) Drs. Louis and ([place]) Medicaid Care Line Prescriptions: Penicillin V Potassium [Penicillin Vk 500 mg Tablet] 500 mg PO BID #20 tablet Forms: Elevated Blood Pressure Referrals: JUAN NUR DO [ACTIVE STAFF] - Follow up as needed [facility] [Provider Group] - Follow up as needed
== END 2018-11-25 11:55 | disposition home or self-care (01) ==
LOC: ER 10:25
DX: K08.89 Other specified disorders of teeth and supporting structures (principal); K02.9 Dental caries, unspecified
CPT/HCPCS: 99282; J3490 ×3

== ENCOUNTER 2018-12-30 07:42 | Emergency (ER) | payer MEDICAID ==
[2018-12-30 07:45] VITALS: BP 121/87
--- NOTE | 2018-12-30 08:19 | ER Document Report ---
HPI - HPI Patient complains to provider of: dental pain Time Seen by Provider: 12/30/18 07:55 Onset: Yesterday Onset/Duration: Persistent Severity: Severe Pain Level: 5 Context: Patient presents emergency department with complaints of right lower dental pain that started yesterday. She reports she had a pus pocket and it popped. She denies other symptoms such as fever vomiting diarrhea. Reports history of dental cavities has not been able to follow-up with a dentist yet. Took ibuprofen and it seemed to help the symptoms. Associated Symptoms: None Exacerbated by: Denies Relieved by: Denies Similar symptoms previously: Yes Recently seen / treated by doctor: Yes - CONSTITUTIONAL Constitutional: DENIES: Fever, Chills - EENT EENT: DENIES: Sore Throat, Ear Pain, Eye problems - NEURO Neurology: REPORTS: Headache - r/t tooth pain. DENIES: Weakness, Vision blurred, Dizzinesss / Vertigo - CARDIOVASCULAR Cardiovascular: DENIES: Chest pain - RESPIRATORY Respiratory: DENIES: Trouble Breathing, Coughing - GASTROINTESTINAL Gastrointestinal: DENIES: Abdominal Pain, Black / Bloody Stools - URINARY Urinary: DENIES: Dysuria, Urgency, Frequency - REPRODUCTIVE Reproductive: DENIES: :, Abnormal bleeding / discharge - MUSCULOSKELETAL Musculoskeletal: DENIES: Extremity pain Past Medical History - General Information source: Patient Last Menstrual Period: Current - Social History Smoking Status: Current Every Day Smoker Chew tobacco use (# tins/day): No Frequency of alcohol use: Occasional Drug Abuse: None Occupation: Construction Lives with: Family Family History: Reviewed & Not Pertinent Patient has suicidal ideation: No Patient has homicidal ideation: No - Past Medical History Cardiac Medical History: Reports: Hx Hypertension - GHTN Endocrine Medical History: Reports: Other - Gestational diabetes Renal/ Medical History: Denies: Hx Peritoneal Dialysis GI Medical History: Reports: Hx Gastroesophageal Reflux Disease - WITH Past Surgical History: Reports: Hx Section - x3, Hx Tubal Ligation - Immunizations Immunizations up to date: Yes Hx Diphtheria, Pertussis, Tetanus Vaccination: Yes Vertical Provider Document - CONSTITUTIONAL Agree With Documented VS: Yes Exam Limitations: No Limitations - INFECTION CONTROL TRAVEL OUTSIDE OF THE [place] IN LAST 30 DAYS: No - HEENT HEENT: Atraumatic, Normocephalic Mouth Diagram: 1 - Patient reports pain. No erythema no swelling no pustule of his mouth wide good clear voice no Ludwigs - NECK Neck: Normal Inspection, Supple - RESPIRATORY Respiratory: Breath Sounds Normal, No Respiratory Distress - CARDIOVASCULAR Cardiovascular: Regular Rate - MUSCULOSKELETAL/EXTREMETIES Musculoskeletal/Extremeties: MAWILMA, FROM - NEURO Level of Consciousness: Awake, Alert, Appropriate Motor/Sensory: No Motor Deficit - DERM Integumentary: Warm, Dry Course - Re-evaluation Re-evalutation: 12/30/18 08:27 Patient reports that she has all the dental resources that we gave her in November. She reports she is trying to call the dentist today to set up an appointment. She was instructed on medication. She was instructed that she really needs to follow-up with a dentist to take care of her issues she verbalized understanding to all instructions Dictation of this chart was performed using voice recognition software; therefore, there may be some unintended grammatical errors. - Vital Signs Vital signs: Temp Pulse Resp BP Pulse Ox 98.0 F 88 16 121/87 H 98 12/30/18 07:45 12/30/18 07:45 12/30/18 07:45 12/30/18 07:45 12/30/18 07:45 Discharge - Discharge Clinical Impression: Pain, dental Condition: Stable Disposition: HOME, SELF-CARE Instructions: Penicillin V K ([facility]), Toothache ([facility]) Additional Instructions: *You have been evaluated for dental pain *Take medications as prescribed tylenol or motrin as indicated for pain *Follow up with dentist within one week *Return to ED for worsening condition, changes, needs Prescriptions: Penicillin V Potassium [Penicillin Vk 500 mg Tablet] 500 mg PO BID #20 tablet Forms: Return to Work Referrals: RICHARD DAVID MD [Primary Care Provider] - Follow up in 1 week
== END 2018-12-30 08:28 | disposition home or self-care (01) ==
LOC: ER 07:42
DX: K08.89 Other specified disorders of teeth and supporting structures (principal); R51 Headache; F17.200 Nicotine dependence, unspecified, uncomplicated; I10 Essential (primary) hypertension
CPT/HCPCS: 99282

== ENCOUNTER 2019-01-18 12:40 | Emergency (ER) | payer MEDICAID ==
--- NOTE | 2019-01-18 13:04 | ER Document Report ---
ED Medical Screen (RME) - General Chief Complaint: Abdominal Pain Stated Complaint: FLANK PAIN Time Seen by Provider: 01/18/19 12:59 Primary Care Provider: RICHARD DAVID MD [Primary Care Provider] - Follow up as needed TRAVEL OUTSIDE OF THE [place] IN LAST 30 DAYS: No - HPI Notes: 01/18/19 13:03 Patient is a 28-year-old female no significant past medical history who presents complaining of pain near her surgical scar from that initially occurred 2 weeks ago when she was reaching in front of her and felt a tearing sensation near her inside of the incision. Patient states that she has not noticed any opening or bleeding to the skin. Patient states that she did take couple days of work thereafter and has continued to feel soreness in that area. Patient states that it reoccurred today and that is what prompted her to come for evaluation. She has not noticed any bulging or redness. She is eating and drinking without difficulty. She is urinating normally and having normal bowel movements. No vaginal discharge, odor, or bleeding. Denies drug allergies. Denies PARRISH, fever, neck pain, URI, CP, SOB, dysuria, back pain, or rash. I have treated and performed a rapid initial assessment of this patient. A comprehensive ED assessment and evaluation of the patient, analysis of test results and completion of medical decision making process will be conducted by additional ED providers. PHYSICAL EXAMINATION: GENERAL: Well-appearing, well-nourished and in no acute distress. A&Ox4. Answers questions appropriately. LUNGS: Breath sounds clear to auscultation bilaterally and equal. No wheezes rales or rhonchi. HEART: Regular rate and rhythm without murmurs, rubs, gallops. ABDOMEN: Soft, nondistended abdomen. No guarding, no rebound. Normal bowel sounds present. No CVA tenderness bilaterally. + mild tenderness to surgical scar area w/o obvious hernia or erythema noted (cannot elicit thorough abd exam w/o bed, however). Extremities: No cyanosis, clubbing, or edema b/l. NEUROLOGICAL: Normal speech, normal gait. PSYCH: Normal mood, normal affect. - Related Data Allergies/Adverse Reactions: No Known Allergies Allergy (Verified 12/30/18 07:47) Past Medical History - Social History Frequency of alcohol use: None Drug Abuse: None - Past Medical History Cardiac Medical History: Reports: Hx Hypertension - GHTN Renal/ Medical History: Denies: Hx Peritoneal Dialysis GI Medical History: Reports: Hx Gastroesophageal Reflux Disease - WITH Past Surgical History: Reports: Hx Section - x3, Hx Tubal Ligation - Immunizations Immunizations up to date: Yes Hx Diphtheria, Pertussis, Tetanus Vaccination: Yes Physical Exam - Vital signs Vitals: Temp Pulse Resp BP Pulse Ox 98 F 66 18 141/93 H 99 01/18/19 12:51 01/18/19 12:51 01/18/19 12:51 01/18/19 12:51 01/18/19 12:51 Course - Vital Signs Vital signs: Temp Pulse Resp BP Pulse Ox 98 F 66 18 141/93 H 99 01/18/19 12:51 01/18/19 12:51 01/18/19 12:51 01/18/19 12:51 01/18/19 12:51 Doctor's Discharge - Discharge Referrals: RICHARD DAVID MD [Primary Care Provider] - Follow up as needed
[2019-01-18 13:36] LABS: APPEARANCE,URINE SLIGHTLY-CLOUDY; BILIRUBIN,URINE NEGATIVE (NEGATIVE); COLOR,URINE YELLOW; GLUCOSE, URINE NEGATIVE (NEGATIVE); KETONES,URINE TRACE mg/dL (NEGATIVE); LEUKOCYTE ESTERASE,URINE NEGATIVE (NEGATIVE); NITRITE,URINE NEGATIVE (NEGATIVE); PROTEIN,URINE NEGATIVE (NEGATIVE); URINE SPECIFIC GRAVITY 1.023; UROBILINOGEN,URINE NEGATIVE mg/dL (<2.0)
[2019-01-18 13:51] LABS: ALANINE AMINOTRANSFERASE 24 U/L (9-52); ALBUMIN 4.4 g/dL (3.5-5.0); ALKALINE PHOSPHATASE 78 U/L (38-126); ANION GAP 11 (5-19); ASPARTATE AMINO TRANSFERASE 22 U/L (14-36); BILIRUBIN,DIRECT 0.2 mg/dL (0.0-0.4); BILIRUBIN,TOTAL 0.7 mg/dL (0.2-1.3); BLOOD UREA NITROGEN 10 mg/dL (7-20); CALCIUM 9.8 mg/dL (8.4-10.2); CARBON DIOXIDE 26 mmol/L (22-30); CHLORIDE 106 mmol/L (98-107); GLUCOSE 87 mg/dL (75-110); POTASSIUM 3.7 mmol/L (3.6-5.0); SODIUM 142.7 mmol/L (137-145); TOTAL PROTEIN 7.6 g/dL (6.3-8.2)
[2019-01-18 13:52] LABS: ABSOLUTE EOSINOPHILS # (AUTO) 0.2 10^3/uL (0.0-0.6); ABSOLUTE LYMPHOCYTES (AUTO) 2.2 10^3/uL (0.5-4.7); ABSOLUTE MONOCYTES (AUTO) 0.5 10^3/uL (0.1-1.4); ABSOLUTE NEUT (AUTO) 3.9 10^3/uL (1.7-8.2); BASOPHILS % (AUTO) 0.6 % (0-2); EOSINOPHILS % (AUTO) 2.8 % (0-6); HEMATOCRIT 35.3 % (36.0-47.0); HEMOGLOBIN 11.8 g/dL (12.0-15.5); LYMPHOCYTES % (AUTO) 32.2 % (13-45); MEAN CORPUSCULAR HEMOGLOBIN 27.4 pg (27.0-33.4); MEAN CORPUSCULAR HGB CONC 33.3 g/dL (32.0-36.0); MEAN CORPUSCULAR VOLUME 82 fl (80-97); MONOCYTES % (AUTO) 6.9 % (3-13); PLATELET COUNT 233 10^3/uL (150-450); RED CELL DISTRIBUTION WIDTH 16.5 % (11.5-14.0); SEGMENTED NEUTROPHILS % (AUTO) 57.5 % (42-78); TOTAL CELLS COUNTED % (AUTO) 100 %; WHITE BLOOD COUNT 6.8 10^3/uL (4.0-10.5)
[2019-01-18] MEDS ORDERED: DICYCLOMINE HCL INJ 20 MG/2 ML AMPULE IM ONE (15:30)
--- NOTE | 2019-01-18 16:51 | RADIOLOGY REPORT (SQ) ---
EXAM DESCRIPTION: U/S ABDOMEN LTD W/DOPPLER COMPLETED DATE/TIME: 01/18/2019 4:30 pm REASON FOR STUDY: low abdominal pain COMPARISON: None. TECHNIQUE: Dynamic and static grayscale images acquired of the localized site of clinical concern an d recorded on PACS. Additional selected color Doppler and spectral images recorded. SITE OF CONCERN: section scar in the lower abdomen. LIMITATIONS: None. FINDINGS: There is a small irregular fluid collection on the right side of the scar, measuring appro ximately 4 mm. Minimal internal echoes. No unusual vascularity on Doppler imaging. IMPRESSION: SMALL 4 MM FLUID COLLECTION ON THE RIGHT SIDE OF THE SURGICAL SCAR. THIS MAY REPRESENT A MINIMAL RESIDUAL SEROMA. NO SIGNIFICANT INTERNAL DEBRIS AND ABSCESS IS PROBABLY UNLIKELY ALTHOUGH NOT ENTIRELY EXCLUDED. TECHNICAL DOCUMENTATION: JOB ID: [id number] [employer] All Rights Reserved Reading location - IP/workstation name: [email or web address]
--- NOTE | 2019-01-18 17:43 | ER Document Report ---
ED General - General Chief Complaint: Abdominal Pain Stated Complaint: FLANK PAIN Time Seen by Provider: 01/18/19 12:59 Primary Care Provider: RICHARD DAVID MD [Primary Care Provider] - Follow up as needed TRAVEL OUTSIDE OF THE [place] IN LAST 30 DAYS: No - HPI Notes: Patient is a 28-year-old female presents emergency department for evaluation of abdominal pain. She had a in November. It was scheduled, her second. She states over the last month she had an aching pain over her car, it is worsened recently. It seems to be worsened with stretching. She denies any fevers or chills. No nausea or vomiting. No vaginal discharge or bleeding. She is moving her bowels normally, passing gas without difficulty. Pain is sharp and stabbing - Related Data Allergies/Adverse Reactions: No Known Allergies Allergy (Verified 12/30/18 07:47) Past Medical History - General Information source: Patient - Social History Smoking Status: Current Every Day Smoker Frequency of alcohol use: None Drug Abuse: None Family History: Reviewed & Not Pertinent Patient has suicidal ideation: No Patient has homicidal ideation: No - Past Medical History Cardiac Medical History: Reports: Hx Hypertension - GHTN Renal/ Medical History: Denies: Hx Peritoneal Dialysis GI Medical History: Reports: Hx Gastroesophageal Reflux Disease - WITH Past Surgical History: Reports: Hx Section - x3, Hx Tubal Ligation - Immunizations Immunizations up to date: Yes Hx Diphtheria, Pertussis, Tetanus Vaccination: Yes Review of Systems - Review of Systems Constitutional: No symptoms reported EENT: No symptoms reported Cardiovascular: No symptoms reported Respiratory: No symptoms reported Gastrointestinal: See HPI Genitourinary: No symptoms reported Female Genitourinary: No symptoms reported Musculoskeletal: No symptoms reported Skin: See HPI Neurological/Psychological: No symptoms reported Physical Exam - Vital signs Vitals: Temp Pulse Resp BP Pulse Ox 98 F 66 18 141/93 H 99 01/18/19 12:51 01/18/19 12:51 01/18/19 12:51 01/18/19 12:51 01/18/19 12:51 - Notes Notes: Vital signs reviewed, please refer to chart. Head is normocephalic, atraumatic. Pupils equal round, reactive to light. Neck is supple without meningismus. Heart is regular rate and rhythm. Lungs are clear to auscultation bilaterally. Abdomen is soft, minimal tenderness over the scar itself. The scar is in the low Pfannenstiel position. I do not appreciate any fluctuance or induration in this area.. Extremities without cyanosis, clubbing. Posterior calves are nontender. Peripheral pulses are equal. Skin is warm and dry. Patient is awake, alert, neurological exam is nonfocal. Course - Re-evaluation Re-evalutation: 01/18/19 17:41 Patient presents emergency department for evaluation of pain over her scar. Her pain is primarily located on the left. Her laboratory investigations were entirely unremarkable. She has no leukocytosis. Ultrasound was performed, and a fluid collection was noted on the right side of the scar. Given the lack of pain in that area, recent surgery, and her lack of any generalized symptoms, I believe it to be a likely seroma. She is to follow-up with her primary care physician, take anti-inflammatories as needed for pain, return to the ED with worsening or new concerning symptoms of any sort. - Vital Signs Vital signs: Temp Pulse Resp BP Pulse Ox 98 F 66 18 141/93 H 99 01/18/19 12:51 01/18/19 12:51 01/18/19 12:51 01/18/19 12:51 01/18/19 12:51 - Laboratory Result Diagrams: 01/18/19 13:10 01/18/19 13:10 Laboratory results interpreted by me: 01/18/19 01/18/19 13:10 13:10 Hgb 11.8 L Hct 35.3 L RDW 16.5 H Urine Ketones TRACE H - Diagnostic Test Radiology reviewed: Reports reviewed Radiology results interpreted by me: 01/18/19 17:42 Abdomen Ultrasound 01/18/19 15:32 IMPRESSION: SMALL 4 MM FLUID COLLECTION ON THE RIGHT SIDE OF THE SURGICAL SCAR. THIS MAY REPRESENT A MINIMAL RESIDUAL SEROMA. NO SIGNIFICANT INTERNAL DEBRIS AND ABSCESS IS PROBABLY UNLIKELY ALTHOUGH NOT ENTIRELY EXCLUDED. Discharge - Discharge Clinical Impression: Scar pain, Seroma after procedure Condition: Stable Disposition: HOME, SELF-CARE Additional Instructions: There was a small fluid collection noted on the right side of your scar, this is likely just a normal product of healing. Ibuprofen as needed for pain. Follow- up with your doctor in 1 to 2 weeks. Return to the emergency department with worsening or new concerning symptoms of any sort. Referrals: RICHARD DAVID MD [Primary Care Provider] - Follow up as needed
[2019-01-18 18:31] VITALS: BP 139/94
== END 2019-01-18 18:31 | disposition home or self-care (01) ==
LOC: ER 12:40
DX: O90.2 Hematoma of obstetric wound (principal); R10.9 Unspecified abdominal pain; F17.200 Nicotine dependence, unspecified, uncomplicated
CPT/HCPCS: 36415; 76705; 80053; 81001; 81025; 85025; 93976; 99284

== ENCOUNTER 2019-01-23 20:12 | Emergency (ER) | payer MEDICAID ==
[2019-01-23] MEDS ORDERED: ONDANSETRON 4 MG TAB.RAPDIS PO ONE (20:34)
--- NOTE | 2019-01-23 20:36 | ER Document Report ---
ED Medical Screen (RME) - General Chief Complaint: Nausea/Vomiting/Diarrhea Stated Complaint: VOMITING Time Seen by Provider: 01/23/19 20:32 Primary Care Provider: RICHARD DAVID MD [Primary Care Provider] - Follow up as needed Mode of Arrival: Ambulatory Information source: Patient Notes: Patient presents to the emergency department with complaints of nausea vomiting diarrhea all day long. Reports she ate some sushi last night and has been sick since. She reports she has had vomiting and diarrhea at least 30 times today. Reports other family members are not ill but they did not eat the sushi. She reports she attempted to eat some dinner and it came right back up. Denies past medical history. Complains of left upper quad abdominal pain and is tender to palpate. Denies fever. I have greeted and performed a rapid initial assessment of this patient. A comprehensive ED assessment and evaluation of the patient, analysis of test results and completion of the medical decision making process will be conducted by additional ED providers. Again TRAVEL OUTSIDE OF THE [place] IN LAST 30 DAYS: No - Related Data Allergies/Adverse Reactions: No Known Allergies Allergy (Verified 01/23/19 20:14) Past Medical History - Social History Chew tobacco use (# tins/day): No Frequency of alcohol use: Rare Drug Abuse: None - Past Medical History Cardiac Medical History: Reports: Hx Hypertension - GHTN Renal/ Medical History: Denies: Hx Peritoneal Dialysis GI Medical History: Reports: Hx Gastroesophageal Reflux Disease - WITH Past Surgical History: Reports: Hx Section - x3, Hx Tubal Ligation - Immunizations Immunizations up to date: Yes Hx Diphtheria, Pertussis, Tetanus Vaccination: Yes Physical Exam - Vital signs Vitals: Temp Pulse Resp BP Pulse Ox 98.2 F 79 20 127/88 H 98 01/23/19 20:22 01/23/19 20:22 01/23/19 20:22 01/23/19 20:22 01/23/19 20:22 Course - Vital Signs Vital signs: Temp Pulse Resp BP Pulse Ox 98.2 F 79 20 127/88 H 98 01/23/19 20:22 01/23/19 20:22 01/23/19 20:22 01/23/19 20:22 01/23/19 20:22 Doctor's Discharge - Discharge Referrals: RICHARD DAVID MD [Primary Care Provider] - Follow up as needed
[2019-01-23 20:58] LABS: HEMATOCRIT 38.6 % (36.0-47.0); HEMOGLOBIN 12.8 g/dL (12.0-15.5); MEAN CORPUSCULAR HEMOGLOBIN 27.3 pg (27.0-33.4); MEAN CORPUSCULAR VOLUME 83 fl (80-97); PLATELET COUNT 215 10^3/uL (150-450); RED BLOOD COUNT 4.68 10^6/uL (3.72-5.28); RED CELL DISTRIBUTION WIDTH 16.1 % (11.5-14.0); WHITE BLOOD COUNT 10.9 10^3/uL (4.0-10.5)
[2019-01-23 21:11] LABS: ABSOLUTE LYMPHOCYTES# (MANUAL) 0.3 10^3/uL (0.5-4.7); ABSOLUTE MONOCYTES # (MANUAL) 0.2 10^3/uL (0.1-1.4); BAND NEUTROPHILS % (MANUAL) 1 % (3-5); BASOPHILS % (MANUAL) 0 % (0-2); EOSINOPHILS % (MANUAL) 0 % (0-6); LYMPHOCYTES % (MANUAL) 3 % (13-45); MONOCYTES % (MANUAL) 2 % (3-13); SEGMENTED NEUTROPHILS % (MAN) 94 % (42-78); TOTAL CELLS COUNTED 100
[2019-01-23 21:12] LABS: ANISOCYTOSIS 1+; APPEARANCE,URINE CLEAR; BILIRUBIN,URINE NEGATIVE (NEGATIVE); COLOR,URINE YELLOW; GLUCOSE, URINE NEGATIVE (NEGATIVE); KETONES,URINE NEGATIVE (NEGATIVE); LEUKOCYTE ESTERASE,URINE NEGATIVE (NEGATIVE); NITRITE,URINE NEGATIVE (NEGATIVE); PLATELET COMMENT ADEQUATE; PROTEIN,URINE NEGATIVE (NEGATIVE); URINE SPECIFIC GRAVITY 1.019; UROBILINOGEN,URINE NEGATIVE mg/dL (<2.0)
[2019-01-23 21:13] LABS: HYPOCHROMASIA SLIGHT
[2019-01-23 21:19] LABS: ALANINE AMINOTRANSFERASE 22 U/L (9-52); ALBUMIN 4.2 g/dL (3.5-5.0); ALKALINE PHOSPHATASE 72 U/L (38-126); ANION GAP 9 (5-19); ASPARTATE AMINO TRANSFERASE 24 U/L (14-36); BILIRUBIN,DIRECT 0.3 mg/dL (0.0-0.4); BLOOD UREA NITROGEN 8 mg/dL (7-20); CALCIUM 9.7 mg/dL (8.4-10.2); CARBON DIOXIDE 24 mmol/L (22-30); CHLORIDE 108 mmol/L (98-107); GLUCOSE 113 mg/dL (75-110); SODIUM 141.4 mmol/L (137-145); TOTAL PROTEIN 7.3 g/dL (6.3-8.2)
[2019-01-23] MEDS ORDERED: NORMAL SALINE 1000 ML 1,000 ML IV ONE (22:24)
--- NOTE | 2019-01-23 23:30 | ER Document Report ---
ED General - General Chief Complaint: Nausea/Vomiting/Diarrhea Stated Complaint: VOMITING Time Seen by Provider: 01/23/19 20:32 Primary Care Provider: RICHARD DAVID MD [Primary Care Provider] - Follow up as needed Mode of Arrival: Ambulatory Notes: Patient is a pleasant 28-year-old female presents with complaint of diarrhea and vomiting. No fevers. She denies any abdominal pain other than some chronic pain she has had over her incision site which she says has been there since her surgery. 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 Surgery was back in September. No blood in her stool. She says that she did see a small shaggy of blood in her emesis once. Otherwise emesis has been more like stomach acid. Symptoms started this morning. She said before going to bed last night she did eat sushi. She thinks this could be contributing to her vomiting and diarrhea. She has no other complaints at this time. TRAVEL OUTSIDE OF THE [place] IN LAST 30 DAYS: No - Related Data Allergies/Adverse Reactions: No Known Allergies Allergy (Verified 01/23/19 20:14) Past Medical History - General Information source: Patient - Social History Smoking Status: Current Every Day Smoker Chew tobacco use (# tins/day): No Frequency of alcohol use: Rare Drug Abuse: None Family History: Reviewed & Not Pertinent Patient has suicidal ideation: No Patient has homicidal ideation: No - Past Medical History Cardiac Medical History: Reports: Hx Hypertension - GHTN Renal/ Medical History: Denies: Hx Peritoneal Dialysis GI Medical History: Reports: Hx Gastroesophageal Reflux Disease - WITH Past Surgical History: Reports: Hx Section - x3, Hx Tubal Ligation - Immunizations Immunizations up to date: Yes Hx Diphtheria, Pertussis, Tetanus Vaccination: Yes Review of Systems - Review of Systems Notes: My Normal Review Basic REVIEW OF SYSTEMS: CONSTITUTIONAL : Denies fever, chills, or sweats. Denies recent illness. EENT: Denies eye, ear, throat, or mouth pain or symptoms. Denies nasal or s inus congestion. CARDIOVASCULAR: Denies chest pain. RESPIRATORY: Denies cough, cold, or chest congestion. Denies shortness of breath, difficulty breathing, or wheezing. GASTROINTESTINAL: Pain along the incision site from previous . Vomiting and diarrhea GENITOURINARY: Denies difficulty urinating, painful urination, burning, frequency, or blood in urine. FEMALE GENITOURINARY: Denies vaginal bleeding, abnormal or irregular periods. MUSCULOSKELETAL: Denies neck or back pain or joint pain or swelling. SKIN: Denies rash or skin lesions. NEUROLOGICAL: Denies altered mental status or loss of consciousness. Denies headache. Denies weakness or paralysis or loss of use of either side. Denies problems with gait or speech. Denies sensory or motor loss. ALL OTHER SYSTEMS REVIEWED AND NEGATIVE. Physical Exam - Vital signs Vitals: Temp Pulse Resp BP Pulse Ox 98.2 F 79 20 127/88 H 98 01/23/19 20:22 01/23/19 20:22 01/23/19 20:22 01/23/19 20:22 01/23/19 20:22 - Notes Notes: General Appearance: Well nourished, alert, cooperative, no acute distress, no obvious discomfort. Well-appearing. Vitals: reviewed, See vital signs table. Head: no swelling or tenderness to the head Eyes: PERRL, EOMI, Conjuctiva clear Mouth: No decreasd moisture Throat: No tonsillar inflammation, No airway obstruction, No lymphadenopathy Neck: Supple, no neck tenderness, No thyromegaly Lungs: No wheezing, No rales, No rhonci, No accessory muscle use, good air exc hange bilaterally. Heart: Normal rate, Regular rythm, No murmur, no rub Abdomen: Normal BS, soft, No rigidity, No abdominal tenderness the patient except for mild tenderness around incision site. Incision is intact and there is no spreading redness or swelling., No guarding, no rebound, no abdominal masses, no organomegaly Extremities: strength 5/5 in all extremities, good pulses in all extremities, no swelling or tenderness in the extremities, no edema. Skin: warm, dry, appropriate color, no rash Neuro: speech clear, oriented x 3, normal affect, responds appropriately to questions. Course - Re-evaluation Re-evalutation: 01/24/19 00:15 Patient is continued to do well with the Zofran. She said no further nausea or vomiting. She looks well. She did receive some IV fluids. Laboratory evaluation is unremarkable. I suspect she may have some food poisoning from sushi she ate. She is not septic or toxic appearing. At this time we will continue to control her nausea with Zofran and anticipate that her diarrhea should hopefully start to improve over the next 1 to 2 days. I informed her that to have a low threshold to return to ER if she has fevers, recurrent vomiting, worsening diarrhea, spreading abdominal pain, any blood in her stool, or if she has diarrhea after 5 days. Patient agrees with plan will be disc harged home. Dictation of this chart was performed using voice recognition software; therefore, there may be some unintended grammatical errors. - Vital Signs Vital signs: Temp Pulse Resp BP Pulse Ox 98.2 F 79 20 127/88 H 98 01/23/19 20:22 01/23/19 20:22 01/23/19 20:22 01/23/19 20:22 01/23/19 20:22 - Laboratory Result Diagrams: 01/23/19 20:45 01/23/19 20:45 Laboratory results interpreted by me: 01/23/19 01/23/19 20:45 20:45 WBC 10.9 H RDW 16.1 H Seg Neuts % (Manual) 94 H Band Neutrophils % 1 L Lymphocytes % (Manual) 3 L Monocytes % (Manual) 2 L Abs Neuts (Manual) 10.4 H Abs Lymphs (Manual) 0.3 L Chloride 108 H Glucose 113 H Discharge - Discharge Clinical Impression: Vomiting and diarrhea Condition: Good Disposition: HOME, SELF-CARE Additional Instructions: Treatment for your vomiting and diarrhea at this time are to control your nausea and vomiting. We have given you a medication called Zofran that will help with this. I anticipate that your diarrhea should improve over the next 1 to 2 days. If you continue to have diarrhea after 5 days than you should return to the ER for reevaluation. Also please return to ER immediately if you have fevers, s preading abdominal pain, bloody stools, intractable vomiting, or if you feel that you are worsening in any way. Please eat a bland diet over the next several days. Prescriptions: Ondansetron [Zofran Odt 4 mg Tablet] 1 tab PO Q4H PRN #15 tab.rapdis PRN Reason: For Nausea/Vomiting Forms: Return to Work Referrals: RICHARD DAVID MD [Primary Care Provider] - Follow up in 3-5 days
[2019-01-24] MEDS ORDERED: ONDANSETRON ODT 4 MG TAB (6 TAB/ER DISP) PO PRN (00:16)
[2019-01-24 00:40] VITALS: BP 133/86
== END 2019-01-24 00:42 | disposition home or self-care (01) ==
LOC: ER 20:12
DX: R11.2 Nausea with vomiting, unspecified (principal); R19.7 Diarrhea, unspecified; R10.9 Unspecified abdominal pain; G89.29 Other chronic pain; F17.200 Nicotine dependence, unspecified, uncomplicated; Z98.890 Other specified postprocedural states; Z87.19 Personal history of other diseases of the digestive system; Z98.51 Tubal ligation status
CPT/HCPCS: 99284; 96360; 36415; 85025; 81025; 80053; 81001; S0119; J7030

== ENCOUNTER 2019-02-21 07:59 | Emergency (ER) | payer MEDICAID ==
[2019-02-21] MEDS ORDERED: IBUPROFEN 800 MG TABLET PO ONE (09:36)
--- NOTE | 2019-02-21 09:40 | ER Document Report ---
ED Medical Screen (RME) - General Chief Complaint: Post Surgical Pain Stated Complaint: PAIN/DRAINAGE AT SITE Time Seen by Provider: 02/21/19 09:34 Primary Care Provider: RICHARD DAVID MD [Primary Care Provider] - Follow up as needed Mode of Arrival: Ambulatory Information source: Patient Notes: patient presents to the ED for c/o complaints of site pain since Thursday. She reports she had a in November. She reports she has had pain at the site since then. She came here once and they told her she had fluid under the surgical site. She reports on Thursday she was working bumped the site and since then she is had a lot of pain. She also reports she had pus discharge at the site. Site is visualized no pus noted no erythema. She denies fever. I have greeted and performed a rapid initial assessment of this patient. A comprehensive ED assessment and evaluation of the patient, analysis of test results and completion of the medical decision making process will be conducted by additional ED providers. Dictation of this chart was performed using voice recognition software; therefore, there may be some unintended grammatical errors. TRAVEL OUTSIDE OF THE [place] IN LAST 30 DAYS: No - Related Data Allergies/Adverse Reactions: No Known Allergies Allergy (Verified 02/21/19 08:00) Past Medical History - Past Medical History Cardiac Medical History: Reports: Hx Hypertension - GHTN Renal/ Medical History: Denies: Hx Peritoneal Dialysis GI Medical History: Reports: Hx Gastroesophageal Reflux Disease - WITH Past Surgical History: Reports: Hx Section - x3, Hx Tubal Ligation - Immunizations Immunizations up to date: Yes Hx Diphtheria, Pertussis, Tetanus Vaccination: Yes Physical Exam - Vital signs Vitals: Temp Pulse Resp BP Pulse Ox 97.7 F 74 16 138/88 H 97 02/21/19 08:09 02/21/19 08:09 02/21/19 08:09 02/21/19 08:09 02/21/19 08:09 Course - Vital Signs Vital signs: Temp Pulse Resp BP Pulse Ox 97.7 F 74 16 138/88 H 97 02/21/19 08:09 02/21/19 08:09 02/21/19 08:09 02/21/19 08:09 02/21/19 08:09 Doctor's Discharge - Discharge Referrals: RICHARD DAVID MD [Primary Care Provider] - Follow up as needed
--- NOTE | 2019-02-21 12:10 | ER Document Report ---
HPI - HPI Patient complains to provider of: post op complication Time Seen by Provider: 02/21/19 09:34 Onset/Duration: Intermittent Quality of pain: Achy Severity: Mild Pain Level: 4 Context: 28-year-old female who has the listed past medical history here for diffuse lower abdominal pain for the last 2 days worse after she is at work and leaned over a sativa patch and has had worsening pain. History of this intermittently since she has had her in November. She did feel a pull on the right side of her . She states the pain is diffusely lower. Denies any vaginal complaints. No abdominal surgeries other than 3 c-sections. she is currently on her menses. No history of ovarian cysts, fibroids, endometriosis, or renal stones. Normal bowel movements. No UTI symptoms. No URI symptoms. No recent antibiotics or steroids. No history of diabetes or asthma. No vaginal discharge/complaints/lesions or concerns for STDs and does not want a pelvic exam. No ripping or tearing sensation. Hasn't taken anything for her symptoms. No excessive NSAID use, Tylenol use, or EtOH. No prior history of gallbladder disease, pancreatitis, ulcers, GI bleed, GERD, IBS, Crohn's, or UC. no change in color or caliber or stool. no blood thinners. no fall or trauma. normal po intake. no other associated sx. - REPRODUCTIVE Reproductive: DENIES: : - DERM Skin Color: Normal Past Medical History - General Information source: Patient - Social History Smoking Status: Current Every Day Smoker Frequency of alcohol use: None Drug Abuse: None Family History: Reviewed & Not Pertinent Patient has suicidal ideation: No Patient has homicidal ideation: No - Past Medical History Cardiac Medical History: Reports: Hx Hypertension - GHTN Renal/ Medical History: Denies: Hx Peritoneal Dialysis GI Medical History: Reports: Hx Gastroesophageal Reflux Disease - WITH Past Surgical History: Reports: Hx Section - x3, Hx Tubal Ligation - Immunizations Immunizations up to date: Yes Hx Diphtheria, Pertussis, Tetanus Vaccination: Yes Vertical Provider Document - CONSTITUTIONAL Notes: >>>> PHYSICAL_EXAM: GENERAL_APPEARANCE: well_nourished, alert, cooperative, no_acute_distress, no_obvious_discomfort. Pleasant, female, smiling, speaking in full sentences, in no sign of pain or resp distress, easily sitting up VITALS: reviewed, see vital signs table. HEAD: normocephalic, atraumatic. no cardenas signs. no raccoon eyes. EYES: PERRL, EOMI, (-)scleral icterus. NOSE: no_nasal_discharge. MOUTH: (-)decreased moisture. THROAT: no_tonsilar_inflammation/hypertrophy/exudate NECK: supple, no_neck_tenderness, full rom. full strength. no meningeal signs. no sign of central cord syndrome BACK: no midline_back_tenderness. no step offs or deformities CHEST_WALL: no_chest_tenderness. LUNGS: no_wheezing, (-)accessory muscle use, good air exchange bilateral. HEART: normal_rate, normal_rhythm, ABDOMEN: normal_BS, soft, abdomen-diffuse, mild ttp over the llq, rlq, and suprapubicly, (-)guarding, (-)rebound, no distension or peritoneal signs. neg murphys. neg mcburneys. no cva tenderness. neg heel sitrke. neg obturator. neg psoas. neg rovsign. Pelvic: Patient deferred RECTAL: deferred EXTREMITIES: strength 5/5 in all_extremities, good pulses in all_extremities, no_edema, no_swelling\tenderness. full rom. normal gait. good hand natural science manager. brisk cap refill. SKIN: warm, dry, good_color, no_rash. no grossly visible overlying skin changes to suggest trauma NEURO: motor_intact, sensory_intact. cranial nerves 2-12 intact, cerebellar fxn intact MENTAL_STATUS: normal_affect, speech_clear, oriented_X_3, responds_appropriately to questions. - INFECTION CONTROL TRAVEL OUTSIDE OF THE [place] IN LAST 30 DAYS: No Course - Re-evaluation Re-evalutation: 02/21/19 15:34 On reexam, pt improved with tx listed. remained stable. nontoxic. well appearing. pain controlled. tolerating po. requesting to go home. Documentation achieved through voice recording which my lead to some occasional accidental typographical errors. Extensive efforts have been made to proof read documentation to make sure these are the least as possible. Category Date Time Status TRANSVAGINAL [U/S NON OB PEL TV W/DOPPLER] [US] Stat Exams 02/21/19 12:52 Completed U/S ABDOMEN LIMITED W/O DOP [US] Stat Exams 02/21/19 Completed CBC WITH DIFF [HEME] Stat Lab 02/21/19 09:45 Completed [facility] GIA PCR URINE INHOUSE [MO] Stat Lab 02/21/19 14:10 Received CMP [COMPREHENSIVE METABOLIC PANEL] [CHEM] Stat Lab 02/21/19 09:45 Completed HCG QUALITATIVE, URINE [URIN] Stat Lab 02/21/19 12:35 Completed URINALYSIS [URIN] Stat Lab 02/21/19 12:35 Completed Acetaminophen [Tylenol 325 mg Tablet] Med 02/21/19 12:53 Discontinued 975 mg PO NOW ONE Ibuprofen [Motrin 800 mg Tablet] Med 02/21/19 09:36 Discontinued 800 mg PO NOW ONE - Vital Signs Vital signs: Temp Pulse Resp BP Pulse Ox 97.7 F 74 16 138/88 H 97 02/21/19 08:09 02/21/19 08:09 02/21/19 08:09 02/21/19 08:09 02/21/19 08:09 - Laboratory Result Diagrams: 02/21/19 09:45 02/21/19 09:45 Laboratory results interpreted by me: 02/21/19 15:34 Labs- All tests 24 hr 02/21/19 02/21/19 02/21/19 09:45 09:45 12:35 WBC 7.7 RBC 4.48 Hgb 12.4 Hct 37.5 MCV 84 MCH 27.6 MCHC 33.0 RDW 14.8 H Plt Count 216 Seg Neutrophils % 69.5 Lymphocytes % 23.7 Monocytes % 4.0 Eosinophils % 2.0 Basophils % 0.8 Absolute Neutrophils 5.4 Absolute Lymphocytes 1.8 Absolute Monocytes 0.3 Absolute Eosinophils 0.2 Absolute Basophils 0.1 Sodium 141.0 Potassium 4.1 Chloride 105 Carbon Dioxide 29 Anion Gap 7 BUN 11 Creatinine 0.66 Est GFR ( Amer) > 60 Est GFR (Non-Af Amer) > 60 Glucose 126 H Calcium 9.7 Total Bilirubin 0.4 Direct Bilirubin 0.2 Neonat Total Bilirubin Not Reportable Neonat Direct Bilirubin Not Reportable Neonat Indirect Bili Not Reportable AST 21 ALT 17 Alkaline Phosphatase 74 Total Protein 7.4 Albumin 4.3 Urine Color YELLOW Urine Appearance CLEAR Urine pH 5.0 Ur Specific [place] 1.021 Urine Protein NEGATIVE Urine Glucose (UA) NEGATIVE Urine Ketones NEGATIVE Urine Blood MODERATE H Urine Nitrite NEGATIVE Urine Bilirubin NEGATIVE Urine Urobilinogen NEGATIVE Ur Leukocyte Esterase NEGATIVE Urine WBC (Auto) 1 Urine RBC (Auto) 42 Squamous Epi Cells Auto 1 Urine Mucus (Auto) FEW Urine Ascorbic Acid NEGATIVE Urine HCG, Qual NEGATIVE - Diagnostic Test Radiology reviewed: Image reviewed, Reports reviewed Radiology results interpreted by me: 02/21/19 15:35 Abdomen Ultrasound 02/21/19 00:00 IMPRESSION: NO SOFT TISSUE MASS, FLUID COLLECTION, OR FOREIGN BODY. Transvaginal US 02/21/19 12:52 IMPRESSION: 4.7 cm cyst left ovary. Discharge - Discharge Clinical Impression: Ovarian cyst, left, Pelvic pain Condition: Stable Disposition: HOME, SELF-CARE Instructions: Ovarian Cyst ([facility]) Additional Instructions: Follow-up with PCP/BALLAST INSPECTOR 1 to 2 days. Return for any worsening symptoms. Tylenol or Motrin as needed for any pain. Pelvic rest. No heavy lifting. Referrals: RICHARD DAVID MD [Primary Care Provider] - Follow up as needed
[2019-02-21] MEDS ORDERED: ACETAMINOPHEN 325 MG TABLET PO ONE (12:53)
[2019-02-21 12:59] LABS: APPEARANCE,URINE CLEAR; BILIRUBIN,URINE NEGATIVE (NEGATIVE); COLOR,URINE YELLOW; GLUCOSE, URINE NEGATIVE (NEGATIVE); KETONES,URINE NEGATIVE (NEGATIVE); LEUKOCYTE ESTERASE,URINE NEGATIVE (NEGATIVE); NITRITE,URINE NEGATIVE (NEGATIVE); PROTEIN,URINE NEGATIVE (NEGATIVE); URINE SPECIFIC GRAVITY 1.021; UROBILINOGEN,URINE NEGATIVE mg/dL (<2.0)
[2019-02-21 13:46] LABS: ABSOLUTE BASOPHILS # (AUTO) 0.1 10^3/uL (0.0-0.2); ABSOLUTE EOSINOPHILS # (AUTO) 0.2 10^3/uL (0.0-0.6); ABSOLUTE LYMPHOCYTES (AUTO) 1.8 10^3/uL (0.5-4.7); ABSOLUTE MONOCYTES (AUTO) 0.3 10^3/uL (0.1-1.4); ABSOLUTE NEUT (AUTO) 5.4 10^3/uL (1.7-8.2); BASOPHILS % (AUTO) 0.8 % (0-2); HEMATOCRIT 37.5 % (36.0-47.0); HEMOGLOBIN 12.4 g/dL (12.0-15.5); LYMPHOCYTES % (AUTO) 23.7 % (13-45); MEAN CORPUSCULAR HEMOGLOBIN 27.6 pg (27.0-33.4); MEAN CORPUSCULAR VOLUME 84 fl (80-97); PLATELET COUNT 216 10^3/uL (150-450); RED BLOOD COUNT 4.48 10^6/uL (3.72-5.28); RED CELL DISTRIBUTION WIDTH 14.8 % (11.5-14.0); SEGMENTED NEUTROPHILS % (AUTO) 69.5 % (42-78); TOTAL CELLS COUNTED % (AUTO) 100 %; WHITE BLOOD COUNT 7.7 10^3/uL (4.0-10.5)
[2019-02-21 13:59] LABS: ALANINE AMINOTRANSFERASE 17 U/L (9-52); ALBUMIN 4.3 g/dL (3.5-5.0); ALKALINE PHOSPHATASE 74 U/L (38-126); ANION GAP 7 (5-19); ASPARTATE AMINO TRANSFERASE 21 U/L (14-36); BILIRUBIN,DIRECT 0.2 mg/dL (0.0-0.4); BILIRUBIN,TOTAL 0.4 mg/dL (0.2-1.3); BLOOD UREA NITROGEN 11 mg/dL (7-20); CALCIUM 9.7 mg/dL (8.4-10.2); CARBON DIOXIDE 29 mmol/L (22-30); CHLORIDE 105 mmol/L (98-107); GLUCOSE 126 mg/dL (75-110); POTASSIUM 4.1 mmol/L (3.6-5.0); TOTAL PROTEIN 7.4 g/dL (6.3-8.2)
--- NOTE | 2019-02-21 15:25 | RADIOLOGY REPORT (SQ) ---
EXAM DESCRIPTION: U/S ABDOMEN LIMITED W/O DOP COMPLETED DATE/TIME: 02/21/2019 3:13 pm REASON FOR STUDY: FLUID/SWELLING AROUND SCAR COMPARISON: None. TECHNIQUE: Dynamic and static grayscale images acquired of the localized site of clinical concern an d recorded on PACS. Additional selected color Doppler and spectral images recorded. SITE OF CONCERN: scar. LIMITATIONS: None. FINDINGS: SKIN AND SUBCUTANEOUS TISSUES: No masses. No fluid collections. No edema. No foreign lilian s. DEEP SOFT TISSUES/MUSCLES: No masses. No fluid collections. No edema. VASCULAR: No increased or decreased vascularity. No occlusions. OTHER: No other significant finding. IMPRESSION: NO SOFT TISSUE MASS, FLUID COLLECTION, OR FOREIGN BODY. TECHNICAL DOCUMENTATION: JOB ID: [id number] [employer]- All Rights Reserved Reading location - IP/workstation name: [email or web address]
--- NOTE | 2019-02-21 15:27 | RADIOLOGY REPORT (SQ) ---
EXAM DESCRIPTION: U/S NON OB PEL TV W/DOPPLER COMPLETED DATE/TIME: 02/21/2019 3:13 pm REASON FOR STUDY: pelvic pain?hernia/fluidswelling around COMPARISON: None. TECHNIQUE: Dynamic and static grayscale images acquired of the pelvis via transvaginal approach and recorded on PACS. Additional selected color Doppler and spectral images recorded. LIMITATIONS: None. FINDINGS: UTERUS: Contour normal. No mass. ENDOMETRIAL STRIPE: No focal or generalized thickening. No masses. CERVIX: No nabothian cysts. RIGHT OVARY AND DOPPLER: Normal size. No worrisome masses. Normal arterial vascular flow without evid ence for torsion. LEFT OVARY AND DOPPLER: Normal size. 4.7 cm simple appearing cyst. No worrisome masses. Normal roger rial vascular flow without evidence for torsion. FREE FLUID: Small amount. OTHER: No other significant finding. IMPRESSION: 4.7 cm cyst left ovary. TECHNICAL DOCUMENTATION: JOB ID: [id number] [employer]- All Rights Reserved Rev Reading location - IP/workstation name: [email or web address]
[2019-02-21 16:12] LABS: CHLAM PCR NOT DETECTED (NOT DETECT)
[2019-02-21 16:17] VITALS: BP 130/78
== END 2019-02-21 16:18 | disposition home or self-care (01) ==
LOC: ER 07:59
DX: N83.202 Unspecified ovarian cyst, left side (principal); R10.2 Pelvic and perineal pain; R10.30 Lower abdominal pain, unspecified; T81.9XXA Unspecified complication of procedure, initial encounter; F17.200 Nicotine dependence, unspecified, uncomplicated
CPT/HCPCS: 99284; 36415; 85025; 81025; 80053; 81001; 87491; 87591; 76705; 76830; 93976; J3490 ×2

== ENCOUNTER → 2020-01-23 | Outpatient (CLI) | payer MEDICAID ==
--- NOTE | 2020-01-23 12:46 | RADIOLOGY REPORT (SQ) ---
EXAM DESCRIPTION: KNEE RIGHT 3 VIEWS IMAGES COMPLETED DATE/TIME: 01/23/2020 12:10 pm REASON FOR STUDY: ACUTE PAIN OF RT KNEE COMPARISON: None. NUMBER OF VIEWS: 4 images of the right knee to include tangential patellofemoral, AP and lateral. LIMITATIONS: None. FINDINGS: There is no acute or significant bone, joint or soft tissue abnormality. OTHER: No other significant finding. IMPRESSION: NORMAL STUDY. TECHNICAL DOCUMENTATION: JOB ID: [id number] Reading location - IP/workstation name: [email or web address]
== END ==
LOC: OD 11:39
PROVIDERS: ATTEND Nurse Practitioner Family
DX: M25.561 Pain in right knee (principal)

== ENCOUNTER 2020-01-25 08:46 | Emergency (ER) | payer MEDICAID ==
[2020-01-25] MEDS ORDERED: KETOROLAC TROMETHAMINE INJ/PF 30 MG/1 ML SDV IM ONE (09:39)
--- NOTE | 2020-01-25 09:44 | ER Document Report ---
HPI - HPI Time Seen by Provider: 01/25/20 09:25 Pain Level: 4 Context: Patient is a 29-year-old female who presents emergency department with a chief complaint of right knee pain. Patient reports that about 6 weeks ago she developed a gradual onset of right knee pain. Patient reports that she did not have a fall or a specific injury but that she does a lot of repetitive movements such as bending down, bending at the knee. Patient reports she did see her primary care physician had an x-ray obtained but did not get the results. Patient reports she did come to the emergency department because the pain is getting worse. Patient reports she has been using an Claude bandage. Patient states she is unable to rest due to having 3 children living a very active lifestyle with work. Patient reports it is worse with bending and walking. Has been taking naproxen with no relief. - REPRODUCTIVE Reproductive: DENIES: : - MUSCULOSKELETAL Musculoskeletal: REPORTS: Extremity pain - right knee Past Medical History - General Information source: Patient - Social History Smoking Status: Current Every Day Smoker Chew tobacco use (# tins/day): No Frequency of alcohol use: None Drug Abuse: None Lives with: Family Family History: Reviewed & Not Pertinent Patient has homicidal ideation: No - Past Medical History Cardiac Medical History: Reports: Hx Hypertension - gestational only Pulmonary Medical History: Reports: None EENT Medical History: Reports: None Neurological Medical History: Reports: None Endocrine Medical History: Reports: None. Denies: Hx Diabetes Mellitus Type 1, Hx Diabetes Mellitus Type 2, Hx Hyperthyroidism, Hx Hypothyroidism Renal/ Medical History: Reports: Hx Ovarian Cysts. Denies: Hx End Stage Renal Disease, Hx Kidney Stones, Hx Peritoneal Dialysis Malignancy Medical History: Reports: None GI Medical History: Reports: Hx Gastroesophageal Reflux Disease - WITH Musculoskeletal Medical History: Reports None Skin Medical History: Reports None Psychiatric Medical History: Reports: None Traumatic Medical History: Reports: None Infectious Medical History: Reports: None Past Surgical History: Reports: Hx Section - x3-last november 2018, Hx Tubal Ligation - Immunizations Immunizations up to date: Yes Hx Diphtheria, Pertussis, Tetanus Vaccination: Yes Vertical Provider Document - CONSTITUTIONAL Agree With Documented VS: Yes Exam Limitations: No Limitations General Appearance: No Apparent Distress - INFECTION CONTROL TRAVEL OUTSIDE OF THE [place] IN LAST 30 DAYS: No - HEENT HEENT: Atraumatic, Normocephalic, PERRLA - NECK Neck: Normal Inspection - RESPIRATORY Respiratory: Breath Sounds Normal, No Respiratory Distress - CARDIOVASCULAR Cardiovascular: Regular Rate, Regular Rhythm - GI/ABDOMEN Gastrointestinal: Abdomen Soft, Abdomen Non-Tender - MUSCULOSKELETAL/EXTREMETIES Notes: Patient has tenderness to the right patella and the patella tendon. There is no laxity with varus and valgus. Anterior drawer negative. There is no erythema, edema or ecchymosis. Patient has a +2 popliteal, dorsalis pedis and posterior tibial pulse. Pain to anterior knee with flexion and extension. No evidence of septic joint. - NEURO Level of Consciousness: Awake, Alert, Appropriate - DERM Integumentary: Warm, Dry, No Rash Course - Re-evaluation Re-evalutation: 01/25/20 09:44 Will obtain an x-ray. We will also give a shot of Toradol. Patient reports that she is not currently and does have a history of a tubal ligation. Ultimately the patient require follow-up with her primary care physician, strict rest and possible referral to orthopedics if she continues to have discomfort. 01/25/20 09:57 Patient had an x-ray of the right knee 2 days ago. Radiology impression was negative for acute fracture dislocation. Negative for effusion. Will prescribe Toradol, follow-up with primary care physician as she may require a orthopedic follow-up due to to continued pain at 6 weeks. Patient verbalized understan jessy. - Vital Signs Vital signs: Temp Pulse Resp BP Pulse Ox 98.3 F 98 20 170/86 H 100 01/25/20 08:53 01/25/20 08:50 01/25/20 08:50 01/25/20 08:50 01/25/20 08:50 Discharge - Discharge Clinical Impression: Right knee pain Qualifiers: Chronicity: acute Qualified Code(s): M25.561 - Pain in right knee Condition: Stable Disposition: HOME, SELF-CARE Additional Instructions: Today are seen in the emergency department for right knee pain. The x-ray from 2 days ago that was ordered by your primary care physician was negative for an acute fracture or dislocation. I would follow-up with your doctor as you may require a orthopedic referral for continued pain greater than 6 weeks. I am prescribing you Toradol which is an anti-inflammatory. Do not take other anti- inflammatories with this such as ibuprofen, Motrin or naproxen. Please take this with food. Please rest over the next few days and stay off of the knee as much as possible. Use claude wrap at home for compression as well as ice. Please return to the emergency department for any worsening symptoms or inability to move the knee joint. Prescriptions: Ketorolac Tromethamine [Toradol 10 mg Tablet] 10 mg PO Q8HP PRN #15 tablet PRN Reason:
[2020-01-25 10:17] VITALS: BP 152/84
== END 2020-01-25 10:15 | disposition home or self-care (01) ==
LOC: ER 08:46
DX: M25.561 Pain in right knee (principal); F17.200 Nicotine dependence, unspecified, uncomplicated; Z98.51 Tubal ligation status
CPT/HCPCS: 99282; 96372; J1885

== ENCOUNTER 2020-04-30 15:47 | Emergency (ER) | payer MEDICAID ==
--- NOTE | 2020-04-30 16:08 | ER Document Report ---
ED Medical Screen (RME) - General Chief Complaint: Cough Stated Complaint: KNEE PAIN Time Seen by Provider: 04/30/20 15:54 Mode of Arrival: Ambulatory Information source: Patient Notes: 29-year-old female presents to ED for complaint of bilateral knee pain. She states she has been having pain with the right knee but now her left knee is locking up and painful. She states she smokes 1/2 pack a day drinks weekly and does not use any drugs. She states 1 of the people at work was coffin and they put him on quarantine and then let him go back to work and then found that he was positive for COVID. She states she has been coughing for about the last 2 weeks and has not been tested. She is alert oriented respirations regular nonlabored speaking in full sentences. I have greeted and performed a rapid initial assessment of this patient. A comprehensive ED assessment and evaluation of the patient, analysis of test results and completion of medical decision making process will be conducted by an additional ED providers. TRAVEL OUTSIDE OF THE [place] IN LAST 30 DAYS: No - Related Data Allergies/Adverse Reactions: No Known Allergies Allergy (Verified 04/30/20 15:57) Past Medical History - Past Medical History Cardiac Medical History: Reports: Hx Hypertension - gestational only Endocrine Medical History: Denies: Hx Diabetes Mellitus Type 1, Hx Diabetes Mellitus Type 2, Hx Hyperthyroidism, Hx Hypothyroidism Renal/ Medical History: Reports: Hx Ovarian Cysts. Denies: Hx End Stage Renal Disease, Hx Kidney Stones, Hx Peritoneal Dialysis GI Medical History: Reports: Hx Gastroesophageal Reflux Disease - WITH Past Surgical History: Reports: Hx Section - x3-last november 2018, Hx Tubal Ligation - Immunizations Immunizations up to date: Yes Hx Diphtheria, Pertussis, Tetanus Vaccination: Yes Physical Exam - Vital signs Vitals: Temp Pulse Resp BP Pulse Ox 98.7 F 106 H 16 135/89 H 98 04/30/20 15:56 04/30/20 15:56 04/30/20 15:56 04/30/20 15:56 04/30/20 15:56 Course - Vital Signs Vital signs: Temp Pulse Resp BP Pulse Ox 98.7 F 106 H 16 135/89 H 98 04/30/20 15:56 04/30/20 15:56 04/30/20 15:56 04/30/20 15:56 04/30/20 15:56
[2020-04-30 17:45] LABS: A TYPE INFLUENZA AG NEGATIVE (NEGATIVE); B INFLUENZA AG NEGATIVE (NEGATIVE)
--- NOTE | 2020-04-30 17:55 | RADIOLOGY REPORT (SQ) ---
EXAM DESCRIPTION: CHEST SINGLE VIEW IMAGES COMPLETED DATE/TIME: 04/30/2020 5:35 pm REASON FOR STUDY: Cough x2-week COMPARISON: None. EXAM PARAMETERS: NUMBER OF VIEWS: One view. TECHNIQUE: Single frontal radiographic view of the chest acquired. RADIATION DOSE: NA LIMITATIONS: None. FINDINGS: LUNGS AND PLEURA: No opacities, masses or pneumothorax. No pleural effusion. MEDIASTINUM AND HILAR STRUCTURES: No masses. Contour normal. HEART AND VASCULAR STRUCTURES: Heart normal in size. Normal vasculature. BONES: No acute findings. HARDWARE: None in the chest. OTHER: No other significant finding. IMPRESSION: NO ACUTE RADIOGRAPHIC FINDING IN THE CHEST. TECHNICAL DOCUMENTATION: JOB ID: [id number] 2010 [employer]- All Rights Reserved Reading location - IP/workstation name: [email or web address]
--- NOTE | 2020-04-30 17:56 | RADIOLOGY REPORT (SQ) ---
EXAM DESCRIPTION: KNEE LEFT 4 VIEW IMAGES COMPLETED DATE/TIME: 04/30/2020 5:35 pm REASON FOR STUDY: Pain knee COMPARISON: None. NUMBER OF VIEWS: Four views. TECHNIQUE: AP, lateral, and both oblique radiographic images acquired of the left knee. LIMITATIONS: None. FINDINGS: MINERALIZATION: Normal. BONES: No acute fracture or dislocation. No worrisome bone lesions. JOINT: No effusion. SOFT TISSUES: No soft tissue swelling. No radio-opaque foreign body. OTHER: No other significant finding. IMPRESSION: No evidence of acute osseous injury or significant degenerative change. TECHNICAL DOCUMENTATION: JOB ID: [id number] 2010 [employer]- All Rights Reserved Reading location - IP/workstation name: [email or web address]
--- NOTE | 2020-04-30 17:57 | RADIOLOGY REPORT (SQ) ---
EXAM DESCRIPTION: KNEE RIGHT 4 VIEWS IMAGES COMPLETED DATE/TIME: 04/30/2020 5:35 pm REASON FOR STUDY: Pain knee COMPARISON: None. NUMBER OF VIEWS: Four views. TECHNIQUE: AP, lateral, and both oblique radiographic images acquired of the right knee. LIMITATIONS: None. FINDINGS: MINERALIZATION: Normal. BONES: No acute fracture or dislocation. No worrisome bone lesions. JOINT: No effusion. SOFT TISSUES: No soft tissue swelling. No radio-opaque foreign body. OTHER: No other significant finding. IMPRESSION: No evidence of acute osseous injury or significant degenerative change. TECHNICAL DOCUMENTATION: JOB ID: [id number] 2010 [employer]- All Rights Reserved Reading location - IP/workstation name: [email or web address]
--- NOTE | 2020-04-30 18:36 | ER Document Report ---
Entered by MELODIE HEREDIA SCRIBE 04/30/20 1808 Acting as scribe for:BESS BERG DO ED General - General Chief Complaint: Cough Stated Complaint: KNEE PAIN Time Seen by Provider: 04/30/20 15:54 Primary Care Provider: HORACIO OROPEZA DO [ACTIVE STAFF] - 05/07/20 Mode of Arrival: Ambulatory Information source: Patient Notes: This 29 year old female patient presents to the emergency department today with complaints of right knee pain the past x3-4 months. Patient states she is able to work and ambulate. Patient states she has also started to have left knee pain. Denies any recent injury to bilateral knees or history of injury. Patient states a coworker tested positive for covid a few weeks ago. Patient denies any covid symptoms and states she has a chronic smokers cough. TRAVEL OUTSIDE OF THE [place] IN LAST 30 DAYS: No - Related Data Allergies/Adverse Reactions: No Known Allergies Allergy (Verified 04/30/20 15:57) Home Medications: naproxen Past Medical History - General Information source: Patient - Social History Smoking Status: Current Every Day Smoker Cigarette use (# per day): Yes Chew tobacco use (# tins/day): No Frequency of alcohol use: Occasional Family History: Reviewed & Not Pertinent Patient has homicidal ideation: No - Past Medical History Cardiac Medical History: Reports: Hx Hypertension - gestational only Renal/ Medical History: Reports: Hx Ovarian Cysts GI Medical History: Reports: Hx Gastroesophageal Reflux Disease - WITH Past Surgical History: Reports: Hx Section - x3-last november 2018, Hx Tubal Ligation - Immunizations Immunizations up to date: Yes Hx Diphtheria, Pertussis, Tetanus Vaccination: Yes Review of Systems - Review of Systems Constitutional: See HPI EENT: No symptoms reported Cardiovascular: No symptoms reported Respiratory: See HPI, Cough Gastrointestinal: No symptoms reported Genitourinary: No symptoms reported Female Genitourinary: No symptoms reported Musculoskeletal: See HPI, Other - bilateral knee pain Skin: No symptoms reported Hematologic/Lymphatic: No symptoms reported Neurological/Psychological: No symptoms reported -: Yes All other systems reviewed and negative Physical Exam - Vital signs Vitals: Temp Pulse Resp BP Pulse Ox 98.7 F 106 H 16 135/89 H 98 04/30/20 15:56 04/30/20 15:56 04/30/20 15:56 04/30/20 15:56 04/30/20 15:56 - General General appearance: Appears well, Alert - HEENT Head: Normocephalic, Atraumatic Eyes: Normal Pupils: PERRL - Respiratory Respiratory status: No respiratory distress Chest status: Nontender Breath sounds: Normal Chest palpation: Normal - Cardiovascular Rhythm: Regular Heart sounds: Normal auscultation Murmur: No - Abdominal Inspection: Normal Distension: No distension Bowel sounds: Normal Tenderness: Nontender - Extremities General upper extremity: Normal inspection. No: Edema Notes: Tenderness with palpation to the patellar tendon and lateral joint line of the right knee. Tenderness with palpation to the inferior patellar tendon and quadriceps tendon of the left knee. No joint effusion or instability of the right or left knee. - Neurological Neuro grossly intact: Yes Cognition: Normal Orientation: AAOx4 [place] Coma Scale Eye Opening: Spontaneous Chris Coma Scale Verbal: Oriented [place] Coma Scale Motor: Obeys Commands Chris Coma Scale Total: 15 Speech: Normal - Psychological Associated symptoms: Normal affect, Normal mood - Skin Skin Temperature: Warm Skin Moisture: Dry Skin Color: Normal Course - Re-evaluation Re-evalutation: 04/30/20 18:18 MDM 29 year old female arrives with bilateral knee pain R> L and exposure to covid. She is without any change in symptoms. We discussed follow up. She expressed understanding. - Vital Signs Vital signs: Temp Pulse Resp BP Pulse Ox 98.7 F 106 H 16 135/89 H 98 04/30/20 15:56 04/30/20 15:56 04/30/20 15:56 04/30/20 15:56 04/30/20 15:56 Discharge - Discharge Clinical Impression: Strep pharyngitis Knee pain Qualifiers: Chronicity: acute Laterality: bilateral Qualified Code(s): M25.561 - Pain in right knee; M25.562 - Pain in left knee Condition: Stable Disposition: HOME, SELF-CARE Instructions: Acetaminophen, Upper Respiratory Illness ([facility]) Additional Instructions: Rest, fluids, medicines as directed. Please return here for increased pain, other problems or other concerns. Use ice to your knees and call the orthopedic doctor for follow up. Consider bicycling and using elastic band. Your strep test was + and that is the reason for the antibiotic. Prescriptions: Amoxicillin Trihydrate [Amoxil 500 mg Capsule] 500 mg PO TID #30 cap Amoxicillin Trihydrate [Amoxil 500 mg Capsule] 500 mg PO TID #30 cap Naproxen [Naprosyn] 500 mg PO BID #30 tablet Naproxen [Naprosyn] 500 mg PO BID #30 tablet Forms: Smoking Cessation Education, Return to Work Referrals: HORACIO OROPEZA DO [ACTIVE STAFF] - 05/07/20 I personally performed the services described in the documentation, reviewed and edited the documentation which was dictated to the scribe in my presence, and it accurately records my words and actions.
[2020-04-30 18:47] VITALS: BP 133/81
== END 2020-04-30 18:47 | disposition home or self-care (01) ==
LOC: ER 15:47
DX: M25.561 Pain in right knee (principal); M25.562 Pain in left knee; J02.0 Streptococcal pharyngitis; R05 Cough; F17.210 Nicotine dependence, cigarettes, uncomplicated; Z20.828 Contact with and (suspected) exposure to other viral communicable diseases
CPT/HCPCS: 99284; 87880; 87635; 87804; 71045; 73564 ×2; C9803